=== PATIENT | male | born 1935 | race Caucasian/White ===

== ENCOUNTER 2018-11-18 15:17 | Inpatient (IN) | payer OTHER ==
[~2018-11-18] VITALS: Ht 165.1 cm; Wt 113.4 kg
--- NOTE | 2018-11-18 15:30 | NUR ---
PT BIBRA FROM HOME TO ED BED 03 C/O WORSENING COUGH, HEMOPTYSIS SINCE LAST NIGHT W/ GENERALIZED ANASARCA WORST SINCE LAST NIGHT. PT GOWNED AND PLACED ON MONITOR. HYPOTENSIVE DIRECTOR TOXICOLOGY. DENIES CHEST PAIN DIRECTOR TOXICOLOGY. AWAITING MD CARRASQUILLO.
--- NOTE | 2018-11-18 15:35 | NUR ---
DR CAREY AT BEDSIDE FOR EVAL.
--- NOTE | 2018-11-18 15:43 | NUR ---
CALLED [facility] TO INITIATE TRANSFER PROCESS
--- NOTE | 2018-11-18 15:45 | NUR ---
IV LINE STARTED BLOOD DRAWN AND SENT TO LAB.
[2018-11-18 15:50] LABS: BASOPHILS # (AUTO) 0.1 /CMM (0.0-0.2); BASOPHILS % (AUTO) 0.7 % (0.0-2.0); HEMATOCRIT 32 % (39-51); HEMOGLOBIN 10.6 g/dL (13.5-17.5); LYMPHOCYTES # (AUTO) 1.3 /CMM (0.8-4.8); LYMPHOCYTES % (AUTO) 8.4 % (20.0-44.0); MEAN CORPUSCULAR HGB CONC 33 g/dl (31.0-36.0); MEAN CORPUSCULAR VOLUME 96 fL (80-96); MONOCYTES # (AUTO) 1.1 /CMM (0.1-1.30); MONOCYTES % (AUTO) 7.5 % (2.0-12.0); NEUTROPHILS # (AUTO) 12.6 /CMM (1.8-8.9); NEUTROPHILS % (AUTO) 83.4 % (43.0-81.0); PLATELET COUNT (AUTO) 163 /CMM (150-450); RED BLOOD CELL COUNT(AUTO) 3.34 MIL/uL (4.5-6.0); WHITE BLOOD COUNT (AUTO) 15.1 K/uL (4.3-11.0)
[2018-11-18 15:59] LABS: CALCIUM, SERUM 8.3 mg/dL (8.5-10.1); CARBON DIOXIDE 29 mmol/L (21-32); CHLORIDE 98 mmol/L (98-107); CREATININE 3.4 mg/dL (0.6-1.3); GLUCOSE 138 mg/dL (74-106); POTASSIUM 4.2 mmol/L (3.5-5.1); SODIUM SERUM 136 mmol/L (136-145); UREA NITROGEN, BLOOD 44 mg/dL (7-18)
[2018-11-18 16:11] LABS: ALANINE AMINOTRANSFERASE 15 U/L (12-78); ALBUMIN 2.7 g/dL (3.4-5.0); ALKALINE PHOSPHATASE 74 U/L (46-116); ASPARTATE AMINOTRANSFERASE 9 U/L (15-37); B-TYPE NATRIURETIC PEPTIDE 10606 PG/ML (0-125); BILIRUBIN,DIRECT 0.1 mg/dL (0.0-0.2); BILIRUBIN,TOTAL 0.6 mg/dL (0.2-1.0); TOTAL PROTEIN, SERUM 6.4 g/dL (6.4-8.2)
--- NOTE | 2018-11-18 16:12 | NUR ---
RADIOLOGY AT BEDSIDE FOR EVAL.
--- NOTE | 2018-11-18 16:29 | NUR ---
CALLED XRAY FOR AN ECHO
[2018-11-18] MEDS ORDERED: IV NS 0.9% 500 ML BAG IV ONE (16:30)
[2018-11-18] MEDS ORDERED: CEFTRIAXONE 1GM BAG (ER ONLY) 50 ML IV ONE (16:51)
[2018-11-18] MEDS ORDERED: FUROSEMIDE 40 MG/4 ML VIAL ONE (16:51)
--- NOTE | 2018-11-18 16:52 | NUR ---
BOWL TOPPER AT BEDSIDE FOR BLOOD CULTURE DRAW.
[2018-11-18] MEDS ORDERED: AZITHROMYCIN 500 MG in IV D5W 250 ML IV ONE (17:00)
[2018-11-18] MEDS ORDERED: FUROSEMIDE 40 MG/4 ML VIAL IV ONE (17:00)
[2018-11-18] MEDS ORDERED: CEFTRIAXONE 1 G in IV D5W 50 ML IV ONE (17:00)
--- NOTE | 2018-11-18 17:20 | NUR ---
PT RECEIVED FROM COURT BUSTAMANTE FOR ADELINE
--- NOTE | 2018-11-18 17:26 | NUR ---
CALLED [facility] TO INFORM THEM THAT A RESULT CAME BACK AND THAT THE ER DR IS READY TO SPEAK TO THE [facility] TO INFORM HIM OF THE RESULT
--- NOTE | 2018-11-18 18:01 | NUR ---
CALLED [facility] FOR ICU BED
--- NOTE | 2018-11-18 18:06 | NUR ---
CALLED [facility]. ENGINEERING SPECIALIST TECHNICIAN WAS PAGED
[2018-11-18] MEDS ORDERED: GLIP-16 PO (18:13)
[2018-11-18] MEDS ORDERED: LATA2.5D2 EACHEYE (18:13)
[2018-11-18] MEDS ORDERED: POTA10TA PO (18:13)
[2018-11-18] MEDS ORDERED: COLC0.6C3 PO (18:13)
[2018-11-18] MEDS ORDERED: DULO20CA18 PO (18:13)
[2018-11-18] MEDS ORDERED: TERA2CAP4 PO (18:13)
[2018-11-18] MEDS ORDERED: ATOR10TA PO (18:13)
[2018-11-18] MEDS ORDERED: TRAM50TA2 PO (18:13)
[2018-11-18] MEDS ORDERED: LISI40TA4 PO (18:13)
[2018-11-18] MEDS ORDERED: CARV25TA2 PO (18:13)
[2018-11-18] MEDS ORDERED: AMLO5TAB9 PO (18:13)
[2018-11-18 18:15] LABS: BILIRUBIN,URINE SMALL (NEGATIVE); BLOOD, URINE Negative Ery/uL (NEGATIVE); KETONES,URINE Negative (NEGATIVE); LEUKOCYTE ESTERASE ,URINE Trace (NEGATIVE); NITRITE, URINE Negative (NEGATIVE); PROTEIN,URINE 30 mg/dl (NEGATIVE); UGLUCOSE Negative (NEGATIVE)
[2018-11-18 18:18] LABS: APPEARANCE,URINE HAZY (CLEAR)
[2018-11-18 18:19] LABS: COLOR,URINE DARK YELLOW (YELLOW)
[2018-11-18 18:29] LABS: RBC,URINE 0-2 /HPF (0-2)
[2018-11-18 18:30] LABS: BACTERIA,URINE Many /HPF (None Seen); SQUAMOUS EPITHELIAL CELL,UR Moderate /HPF (None Seen)
[2018-11-18] MEDS ORDERED: ONDANSETRON HCL/PF 4 MG/2 ML VIAL IVP PRN (19:00)
[2018-11-18] MEDS ORDERED: TRAMADOL HCL 50 MG TABLET PO PRN (19:00)
[2018-11-18] MEDS ORDERED: NOREPINEPHRINE 8 MG in IV D5W 500 ML IV PRN (19:00)
[2018-11-18] MEDS ORDERED: DEXTROSE 50%-WATER 50 ML DISP.SYRIN IV PRN (19:00)
--- NOTE | 2018-11-18 19:52 | NUR ---
ICU BED 256 GIVEN
--- NOTE | 2018-11-18 20:04 | NUR ---
REPORT GIVEN TO KRUPA YUN.
--- NOTE | 2018-11-18 20:25 | NUR ---
US AT BEDSIDE.
--- NOTE | 2018-11-18 20:45 | NUR ---
RN NOTE RECEIVED PATIENT FROM ER VIA GURELISABETH, ALERT/ORIENTED X 4, AWAKE, PAIN NOTED 11/19, THROAT PAIN, PER PATIENT HE HAS PAIN IN THE THROAT AFTER EPISODE OF VOMITING AT HOME, PAIN MEDICATION ADMINISTERED, DX ARF, ON NASAL CANULA 2 L/MIN VIA NASAL CANULA, PACEMAKER ON THE LEFT SIDE OF THE CHEST, GENERALIZED EDEMA, LEFT HAND 18G, NO S/S OF INFECTION/INFILTRATION, DAUGHTER IS BY BEDSIDE, DR BRITO IS BY BEDSIDE, ALL SAFETY MEASURES TAKEN
[2018-11-18] MEDS: NORMAL SALINE FLUSH 10 ML SYR IV SCH (21:29)
[2018-11-18] MEDS: ATORVASTATIN 10 MG TABLET PO SCH (21:30)
[2018-11-18] MEDS: BLOOD SUGAR DIAGNOSTIC 1 EACH STRIP IN SCH (21:34)
[2018-11-18] MEDS: ALBUTEROL FS 2.5 MG/3 ML VIAL.NEB NEB SCH (21:41)
[2018-11-18 22:00] VITALS: BP 148/64
[2018-11-18] MEDS ORDERED: LATANOPROST EYE DROP 0.005% 2.5 ML BOTTLE EACHEYE SCH (22:00)
--- NOTE | 2018-11-18 22:00 | NUR ---
RN NOTE PENA CATH. WAS INSERTED BY CHARGE NURSE, NO S/S OF BLEEDING NOTED, URINE CLEAR
--- NOTE | 2018-11-18 22:00 | NUR ---
RN NOTE BLADDER SCAN 24ML NOTED, PER DOCTOR DARYL NEW ORDER OF INSERTION OF PENA CATHETER GIVEN AND CARRIED OUT
[2018-11-18 22:30] VITALS: BP 121/62
[2018-11-18 22:43] LABS: THYROID STIMULATING HORMONE 4.204 uIU/mL (0.358-3.74)
[2018-11-18 23:00] VITALS: BP 129/69
[2018-11-18 23:30] VITALS: BP 131/67
[2018-11-18] MEDS ORDERED: LATANOPROST EYE DROP 0.005% 2.5 ML BOTTLE ONE (23:42)
--- NOTE | 2018-11-18 23:46 | NUR ---
RN NOTE PATIENT COMPLAINED OF PAIN AFTER INSERTION OF PENA CATH, CALLED DR HYMAN, NEW ORDER IS GIVEN AND CARRIED, ALSO NOTIFIED DR HYMAN OF TROPONIN 0.108, NO ORDERS AT THIS TIME, WILL CONTINUE TO MONITOR PATIENT
[2018-11-19] VITALS (33 sets, daily range): BP systolic 87–145; BP diastolic 39–82
[2018-11-19] MEDS ORDERED: MORPHINE SULFATE INJ 2 MG/ML DISP.SYRIN IV ONE
[2018-11-19] MEDS: NORMAL SALINE FLUSH 10 ML SYR IV SCH ×2 (05:00→13:00)
--- NOTE | 2018-11-19 07:05 | NUR ---
RN NOTE PATIENT IS ALERT/ORIENTED, NO BREATHING PROBLEM NOTED AT THIS TIME, NO PAIN OR DISCOMFORT AT THIS TIME, ALL SAFETY MEASURES TAKEN
--- NOTE | 2018-11-19 07:25 | NUR ---
COUNTER FORMER OPENING NOTE NOTE RECEIVED REPORT FROM PM NURSE.PATIENT AXOX4 NICARAGUAN SPEAKING.UNDERSTAND MINIMAL NIGERIAN.NO SOB NO DISTRESS NOTED.ON O2 4L VIA NASAL CANULA.NO CHEST PAIN NOTED.IV ON L HAND INTACT AND PATENT.CONTROLLED AFIB WITH HR 110 ON MONITOR.SAFETY AND ASPIRATION PRECAUTIONS OBSERVED.WILL CONTINUE TO MONITOR.
[2018-11-19] MEDS: BLOOD SUGAR DIAGNOSTIC 1 EACH STRIP IN SCH ×3 (07:27→17:18)
[2018-11-19] MEDS: ALBUTEROL FS 2.5 MG/3 ML VIAL.NEB NEB SCH ×3 (07:29→15:20)
[2018-11-19] MEDS: INSULIN REGULAR, HUMAN 100 UNIT/ML 3 ML VIAL SQ PRN ×2 (07:49→12:58)
[2018-11-19] MEDS ORDERED: DULOXETINE HCL 20 MG CAPSULE.DR PO SCH (09:00)
[2018-11-19] MEDS ORDERED: PANTOPRAZOLE 40 MG VIAL IV SCH (09:00)
[2018-11-19] MEDS: ACETAMINOPHEN 325 MG TABLET PO PRN ×2 (09:50→17:20)
[2018-11-19] MEDS ORDERED: PANTOPRAZOLE 40 MG TABLET.DR PO SCH (10:00)
--- NOTE | 2018-11-19 10:30 | NUR ---
INTERIOR PANELER NOTE PATIENT C/O PAIN IN THE CATHETER INSERTION SITE WANT TO REMOVE CATHETER, MADE AWARE.OK TO REMOVE PENA CATH.PENA REMOVED.WILL CONTINUE TO MONITOR.
[2018-11-19 11:04] LABS: BASOPHILS # (AUTO) 0.1 /CMM (0.0-0.2); BASOPHILS % (AUTO) 0.4 % (0.0-2.0); EOSINOPHILS % (AUTO) 0.1 % (0.0-6.0); HEMATOCRIT 33 % (39-51); LYMPHOCYTES # (AUTO) 0.8 /CMM (0.8-4.8); LYMPHOCYTES % (AUTO) 5.6 % (20.0-44.0); MEAN CORPUSCULAR HGB CONC 33 g/dl (31.0-36.0); MEAN CORPUSCULAR VOLUME 95 fL (80-96); MONOCYTES % (AUTO) 7.1 % (2.0-12.0); NEUTROPHILS # (AUTO) 12.5 /CMM (1.8-8.9); NEUTROPHILS % (AUTO) 86.8 % (43.0-81.0); PLATELET COUNT (AUTO) 174 /CMM (150-450); WHITE BLOOD COUNT (AUTO) 14.5 K/uL (4.3-11.0)
[2018-11-19 11:17] LABS: APPEARANCE,URINE CLOUDY (CLEAR); BILIRUBIN,URINE 1+ (NEGATIVE); BLOOD, URINE 3+ Ery/uL (NEGATIVE); COLOR,URINE BROWN (YELLOW); KETONES,URINE NEGATIVE (NEGATIVE); LEUKOCYTE ESTERASE ,URINE NEGATIVE (NEGATIVE); NITRITE, URINE NEGATIVE (NEGATIVE); PROTEIN,URINE 2+ mg/dl (NEGATIVE); UGLUCOSE NEGATIVE (NEGATIVE); UROBILINOGEN,URINE 0.2 EU/dL (0.2)
[2018-11-19 11:20] LABS: URINE TOTAL PROTEIN 188.5 mg/dL (0-11.9)
[2018-11-19 11:23] LABS: RBC,URINE TOO NUMEROUS TO COUN /HPF (0-2)
[2018-11-19 11:24] LABS: BACTERIA,URINE Few /HPF (None Seen); SQUAMOUS EPITHELIAL CELL,UR Few /HPF (None Seen); URINE AMORPHOUS URATE Moderate /HPF (None Seen)
[2018-11-19 11:27] LABS: ALANINE AMINOTRANSFERASE 17 U/L (12-78); ALBUMIN 2.6 g/dL (3.4-5.0); ALKALINE PHOSPHATASE 77 U/L (46-116); ASPARTATE AMINOTRANSFERASE 10 U/L (15-37); BILIRUBIN,TOTAL 0.6 mg/dL (0.2-1.0); CALCIUM, SERUM 8.5 mg/dL (8.5-10.1); CARBON DIOXIDE 28 mmol/L (21-32); CHLORIDE 96 mmol/L (98-107); CREATININE 3.1 mg/dL (0.6-1.3); GLUCOSE 174 mg/dL (74-106); MAGNESIUM 2.2 mg/dL (1.8-2.4); PHOSPHORUS 5.2 mg/dL (2.5-4.9); SODIUM SERUM 134 mmol/L (136-145); TOTAL PROTEIN, SERUM 6.5 g/dL (6.4-8.2); UREA NITROGEN, BLOOD 51 mg/dL (7-18)
--- NOTE | 2018-11-19 11:30 | NUR ---
GLOBAL LOGISTICS ANALYST NOTE SEEN BY UPDATED PATIENT CONDITION WITH LABS.GOT NEW ORDER FOR DISCHARGE TO [place].WILL CONTINUE TO MONITOR.
[2018-11-19 13:18] LABS: EOSINOPHIL,URINE Rare
[2018-11-19] MEDS ORDERED: SOD FERRIC GLUC 125 MG in IV NS 0.9% 100 ML IV SCH (14:00)
[2018-11-19] MEDS: ATORVASTATIN 10 MG TABLET PO SCH (17:21)
--- NOTE | 2018-11-19 18:30 | NUR ---
SETTLEMENT PROCESSOR NOTE DISCHARGE INSTRUCTIONS GIVEN TO PATIENT AND FAMILY.EXIT CARE GIVEN.PATIENT VERBALIZED UNDERSTANDING.NO ATB TO CONTINUE PER .PATIENT TRANSFERRING.NO BELONGINGS.CASE ,GOT CALL FROM TOE PUNCHER GOT INFORMATION REGARDING TRANSFER.
--- NOTE | 2018-11-19 18:44 | NUR ---
PROFESSOR OF THEATERBIRD RAISER NOTE PATIENT TRANSFERRED TO [facility] BY [facility] WITH FAMILY.PATIENT IS IN STABLE CONDITION.NO SOB NO DISTRESS NOTED.ON O2 3L VIA NASAL CANULA.NO CHEST PAIN NOTED.BLADDER SCAN DONE.MAX AMOUNT OF URINE 100ML.IV ON L HAND INTACT AND PATENT.CONTROLLED AFIB WITH HR 103 ON MONITOR.REPORT GIVEN TO JEANNETTE YUN AT [facility].ROOM [facility]0-A PHONE #[phone].
[2018-11-19] MEDS ORDERED: CEFTRIAXONE 1 G in IV D5W 50 ML IV SCH (20:00)
[2018-11-19] MEDS ORDERED: AZITHROMYCIN 250 MG TABLET PO SCH (20:00)
[2018-11-20] MEDS ORDERED: LEVOTHYROXINE SODIUM 100 MCG TABLET PO SCH (07:30)
== END 2018-11-19 18:54 | disposition short-term general hospital (02) | DRG 280 ==
LOC: ER 15:22 → ICU 20:00
PROVIDERS: ADMIT Internal Medicine; ATTEND Internal Medicine
DX: I13.0 Hypertensive heart and chronic kidney disease with heart failure and stage 1 through stage 4 chronic kidney disease, or unspecified chronic kidney disease (principal); N17.0 Acute kidney failure with tubular necrosis; I21.A1 Myocardial infarction type 2; I50.31 Acute diastolic (congestive) heart failure; I42.9 Cardiomyopathy, unspecified; D72.829 Elevated white blood cell count, unspecified; E78.5 Hyperlipidemia, unspecified; E66.01 Morbid (severe) obesity due to excess calories; I25.10 Atherosclerotic heart disease of native coronary artery without angina pectoris; Z95.0 Presence of cardiac pacemaker; I70.0 Atherosclerosis of aorta; G47.33 Obstructive sleep apnea (adult) (pediatric); D50.9 Iron deficiency anemia, unspecified; I95.9 Hypotension, unspecified; N40.0 Benign prostatic hyperplasia without lower urinary tract symptoms; I48.91 Unspecified atrial fibrillation; I70.1 Atherosclerosis of renal artery; K21.9 Gastro-esophageal reflux disease without esophagitis; N18.9 Chronic kidney disease, unspecified; E11.22 Type 2 diabetes mellitus with diabetic chronic kidney disease; Z79.84 Long term (current) use of oral hypoglycemic drugs
CPT/HCPCS: 36415; 71045-TC; 80048-TC; 80053-TC; 80076-TC; 81000-TC; 82570-TC; 82962-TC; 83540-TC; 83605-TC; 83735-TC; 83880; 84100-TC; 84155-TC; 84300-TC; 84443-TC; 84484-TC; 85025-TC; 85730-TC; 87040-TC; 87081-TC; 87086-TC; 93307-TC; A4216; G0378; J0456; J0696; J1815; J1940; J2270; J2916; J7030; J7040; J7060

== ENCOUNTER 2019-09-11 19:00 | Inpatient (IN) | payer OTHER ==
[~2019-09-11] VITALS: Ht 152.4 cm; Wt 99.8 kg
[~2019-09-11 19:00] MED LIST: ATOR10TA PO; CARV25TA2 PO; DULO20CA19 PO; LATA2.5D2 EACHEYE; TRAM50TA2 PO
--- NOTE | 2019-09-11 19:30 | NUR ---
bibra39, from home, c/o weakness and dizzy x 1 hr, hypotension on scene. Pt alert and responsive. breathing evenly. pt was placed on a monitor,
--- NOTE | 2019-09-11 20:00 | NUR ---
BLADDER SCAN DONE: 60ML. MADE AWARE. PER MD TO HOLD PENA CATH INSERTION
--- NOTE | 2019-09-11 20:00 | NUR ---
US TECH AT THE BED SIDE
--- NOTE | 2019-09-11 20:32 | NUR ---
EVGENY GRACIA IN LAW
[2019-09-11 20:47] LABS: BASOPHILS % (AUTO) 0.2 % (0.0-2.0); HEMATOCRIT 33 % (39-51); HEMOGLOBIN 10.7 g/dL (13.5-17.5); LYMPHOCYTES # (AUTO) 0.4 /CMM (0.8-4.8); LYMPHOCYTES % (AUTO) 2.2 % (20.0-44.0); MEAN CORPUSCULAR HGB CONC 33 g/dl (31.0-36.0); MEAN CORPUSCULAR VOLUME 93 fL (80-96); MONOCYTES # (AUTO) 0.5 /CMM (0.1-1.30); MONOCYTES % (AUTO) 2.4 % (2.0-12.0); NEUTROPHILS # (AUTO) 17.7 /CMM (1.8-8.9); NEUTROPHILS % (AUTO) 95.2 % (43.0-81.0); PLATELET COUNT (AUTO) 263 /CMM (150-450); RED BLOOD CELL COUNT(AUTO) 3.55 MIL/uL (4.5-6.0); WHITE BLOOD COUNT (AUTO) 18.6 K/uL (4.3-11.0)
[2019-09-11 21:19] LABS: CALCIUM, SERUM 7.8 mg/dL (8.5-10.1); CARBON DIOXIDE 26 mmol/L (21-32); CHLORIDE 93 mmol/L (98-107); CREATININE 2.4 mg/dL (0.6-1.3); GLUCOSE 207 mg/dL (74-106); POTASSIUM 3.3 mmol/L (3.5-5.1); SODIUM SERUM 130 mmol/L (136-145); UREA NITROGEN, BLOOD 34 mg/dL (7-18)
[2019-09-11 21:24] LABS: ALANINE AMINOTRANSFERASE 16 U/L (12-78); ALBUMIN 2.1 g/dL (3.4-5.0); ALKALINE PHOSPHATASE 152 U/L (46-116); ASPARTATE AMINOTRANSFERASE 15 U/L (15-37); BILIRUBIN,DIRECT 0.2 mg/dL (0.0-0.2); BILIRUBIN,TOTAL 0.6 mg/dL (0.2-1.0); TOTAL PROTEIN, SERUM 5.9 g/dL (6.4-8.2)
[2019-09-11] MEDS ORDERED: IV NS 0.9% 500 ML BAG IV ONE (22:30)
[2019-09-11] MEDS ORDERED: MEROPENEM 1,000 MG in IV NS 0.9% 100 ML IV ONE (22:30)
[2019-09-11] MEDS: VANCOMYCIN 1 GM in IV D5W 250 ML IV ONE ×2 (22:35→23:08)
--- NOTE | 2019-09-11 22:35 | NUR ---
end time for [facility]: [id number]
[2019-09-11] MEDS ORDERED: MEROPENEM 1 G VIAL IV ONE (22:39)
[2019-09-11] MEDS ORDERED: VANCOMYCIN 1 GM VIAL ONE (22:40)
--- NOTE | 2019-09-11 22:53 | NUR ---
CALLED [facility], AWAITING CALL FROM [facility]
--- NOTE | 2019-09-11 23:10 | NUR ---
[place] DANIELLA [phone]
--- NOTE | 2019-09-11 23:31 | NUR ---
[facility] BED 106
[2019-09-11 23:38] LABS: APPEARANCE,URINE Slightly Cloudy (CLEAR); BILIRUBIN,URINE Negative (NEGATIVE); BLOOD, URINE Moderate Ery/uL (NEGATIVE); COLOR,URINE Yellow (YELLOW); KETONES,URINE Negative (NEGATIVE); LEUKOCYTE ESTERASE ,URINE Small (NEGATIVE); NITRITE, URINE Negative (NEGATIVE); PROTEIN,URINE Trace mg/dl (NEGATIVE); UGLUCOSE 500 MG/DL mg/dL (NEGATIVE); UROBILINOGEN,URINE 0.2 EU/dL (0.2)
--- NOTE | 2019-09-11 23:58 | NUR ---
RECEIVED REPORT FROM ER NURSE MALLORY.
--- NOTE | 2019-09-11 23:58 | NUR ---
report givwn to donald
[2019-09-12] VITALS (7 sets, daily range): BP systolic 105–156; BP diastolic 60–84
[2019-09-12 00:07] LABS: BACTERIA,URINE Many /HPF (None Seen); SQUAMOUS EPITHELIAL CELL,UR Rare /HPF (None Seen); WBC,URINE 81-100 /HPF (0-3)
--- NOTE | 2019-09-12 00:18 | NUR ---
[facility]ON[facility] RN NOTE PATIENT IS 83 YEAR OLD MALE ARRIVED TO [facility] VIA [facility] ACLS PROTOCOL. PATIENT IS AOX3. ON NC 2L/MIN TOLERATING WELL SATURATION 97%. ON TELE MONITORING SHOWING CONTROLLED A-FIB HR 80-90s. ON PENA CATHETER, PATENT AND DRAINING CLEAR YELLOW URINE. PATIENT HAS RIGHT AC G18 AND RIGHT HAND G18; ALL IV SITES C/D/I. FLUSHING WELL. PHOTO OF SKIN ISSUE TAKEN AND PLACED IN CHART. PLACED ON DROPLET PRECAUTION FOR R/O COVID. SPECIMEN COLLECTED IN ED, AWAITING FOR PENDING RESULT. SAFETY PRECAUTIONS IMPLEMENTED. BED LOCKED, LOW POSITION, ALARM ON. SIDE RAILS X 2 UP. HOB ELEVATED. PATIENT WISHES TO BE FULL CODE. CALL LIGHT PLACED WITHIN REACH. WILL CONT. TO MONITOR.
--- NOTE | 2019-09-12 00:26 | NUR ---
pt was transferred to 109 under acls
[2019-09-12] MEDS ORDERED: MAGNESIUM HYDROXIDE 30 ML UDC PO PRN (00:30)
[2019-09-12] MEDS ORDERED: ACETAMINOPHEN 325 MG TABLET PO PRN (00:30)
[2019-09-12] MEDS ORDERED: ZOLPIDEM TARTRATE 5 MG TABLET PO PRN (00:30)
[2019-09-12] MEDS ORDERED: MAG HYDROX/AL HYDROX/SIMETH 30 ML UDC PO PRN (00:30)
[2019-09-12] MEDS ORDERED: Z GUARD REMEDY 2 OZ OINT TP PRN (00:30)
[2019-09-12] MEDS ORDERED: ONDANSETRON HCL/PF 4 MG/2 ML VIAL IVP PRN (00:30)
[2019-09-12] MEDS: IV NS 0.9% 1,000 ML IV PRN (01:39)
[2019-09-12] MEDS: HYDROCODONE/APAP 5/325MG 1 EACH TABLET PO PRN ×5 (01:41→23:08)
--- NOTE | 2019-09-12 04:00 | NUR ---
YONAS RN NOTE BED BATH RENDERED PATIENT TOLERATED WELL.
[2019-09-12] MEDS ORDERED: PIPERACILLIN /TAZOBACTAM 2.25 G VIAL IV ONE (05:54)
[2019-09-12] MEDS ORDERED: PIPERACILLIN /TAZOBACTAM 2.25 G in IV D5W 50 ML IV ONE (06:00)
[2019-09-12 06:54] LABS: BASOPHILS # (AUTO) 0.1 /CMM (0.0-0.2); BASOPHILS % (AUTO) 0.5 % (0.0-2.0); EOSINOPHILS % (AUTO) 0.1 % (0.0-6.0); HEMATOCRIT 31 % (39-51); HEMOGLOBIN 10.1 g/dL (13.5-17.5); LYMPHOCYTES % (AUTO) 4.2 % (20.0-44.0); MEAN CORPUSCULAR HGB CONC 33 g/dl (31.0-36.0); MEAN CORPUSCULAR VOLUME 93 fL (80-96); MONOCYTES % (AUTO) 4.3 % (2.0-12.0); NEUTROPHILS # (AUTO) 21.7 /CMM (1.8-8.9); NEUTROPHILS % (AUTO) 90.9 % (43.0-81.0); PLATELET COUNT (AUTO) 237 /CMM (150-450); RED BLOOD CELL COUNT(AUTO) 3.36 MIL/uL (4.5-6.0); WHITE BLOOD COUNT (AUTO) 23.9 K/uL (4.3-11.0)
--- NOTE | 2019-09-12 07:01 | NUR ---
[facility]ON[facility] RN NOTES PATIENT RESTED WELL THROUGH OUT THE SHIFT. NO S/S OF DISTRESS NOTED. VITAL SIGNS REMAINED WNL. DUE MEDICATIONS/ PRN WERE GIVEN WAS EFFECTIVE TOLERATED WELL. F/C INTACT YELLOW URINE DARNING WITH GRAVITY. PATIENT IS COMPLIANT WITH TREATMENT. ALL SAFETY MEASURES IN PLACE. ALL NEEDS ARE ATTENDED. WILL ENDORSE PATIENT TO DAY SHIFT NURSE FOR ADELINE.
--- NOTE | 2019-09-12 07:10 | NUR ---
[facility] RN OPENING NOTES RECEIVED REPORT FROM [facility] SHIFT NURSE. PT AWAKE IN BED, ALERT AND ORIENTED X 3, SAO TOMEAN SPEAKING, ON 02 VIA NC 2L/MIN, SATURATING WELL, NO SIGNS OF RESPIRATORY DISTRESS NOTED. AFIB ON TELE MONITOR, PENA CATH INTACT, PATENT, DRAINING CLEAR YELLOW URINE. I SITE ON RIGHT AC G18 INTACT, PATENT. IV SITE ON RIGHT HAND G18 INTACT PATENT. BED IN LOW POSITION, LOCKED, CALL LIGHT WITHIN REACH. COVID DROPLET PRECAUTIONS MAINTAINED FOR R/E COVID. WILL CONTINUE TO MONITOR.
[2019-09-12 07:45] LABS: CALCIUM, SERUM 7.6 mg/dL (8.5-10.1); CARBON DIOXIDE 25 mmol/L (21-32); CHLORIDE 94 mmol/L (98-107); CREATININE 2.3 mg/dL (0.6-1.3); GLUCOSE 294 mg/dL (74-106); SODIUM SERUM 130 mmol/L (136-145); UREA NITROGEN, BLOOD 34 mg/dL (7-18)
[2019-09-12 07:52] LABS: ALANINE AMINOTRANSFERASE 16 U/L (12-78); ALBUMIN 1.9 g/dL (3.4-5.0); ALKALINE PHOSPHATASE 108 U/L (46-116); ASPARTATE AMINOTRANSFERASE 11 U/L (15-37); BILIRUBIN,TOTAL 0.5 mg/dL (0.2-1.0); MAGNESIUM 2.1 mg/dL (1.8-2.4); PHOSPHORUS 4.1 mg/dL (2.5-4.9); TOTAL PROTEIN, SERUM 5.6 g/dL (6.4-8.2)
[2019-09-12] MEDS ORDERED: NITR0.4T48 SL (08:07)
[2019-09-12] MEDS ORDERED: POTA10TA11 PO (08:07)
[2019-09-12] MEDS ORDERED: ACET-868 PO (08:07)
[2019-09-12] MEDS ORDERED: COLC0.6C3 PO (08:07)
[2019-09-12] MEDS ORDERED: EMPA25TA PO (08:07)
[2019-09-12] MEDS ORDERED: CYAN100096 PO (08:07)
[2019-09-12] MEDS ORDERED: FERR325T23 PO (08:07)
[2019-09-12] MEDS ORDERED: GLIP5TAB13 PO (08:07)
[2019-09-12] MEDS ORDERED: DABI110C PO (08:07)
[2019-09-12] MEDS ORDERED: MAGN400T26 PO (08:07)
[2019-09-12] MEDS ORDERED: METF-442 PO (08:07)
[2019-09-12] MEDS ORDERED: TORS20TA3 PO (08:07)
[2019-09-12] MEDS ORDERED: MINE105O TP (08:07)
[2019-09-12] MEDS ORDERED: TERA2CAP4 PO (08:07)
[2019-09-12] MEDS ORDERED: MIRT15TA7 PO (08:07)
[2019-09-12] MEDS ORDERED: TERB30CR8 TP (08:07)
[2019-09-12] MEDS: DULOXETINE HCL 20 MG CAPSULE.DR PO SCH (08:13)
[2019-09-12] MEDS: FUROSEMIDE 40 MG/4 ML VIAL IV SCH ×2 (08:15→11:26)
[2019-09-12] MEDS: PIPERACILLIN /TAZOBACTAM 2.25 G in IV D5W 50 ML IV SCH ×3 (11:26→23:35)
[2019-09-12] MEDS: ATORVASTATIN 10 MG TABLET PO SCH (17:08)
--- NOTE | 2019-09-12 17:55 | NUR ---
[facility]ON[facility] RN CLOSING NOTES PT AWAKE IN BED, ALERT AND ORIENTED X 3, PERUVIAN SPEAKING, ON 02 VIA NC 2L/MIN, SATURATING WELL, NO SIGNS OF RESPIRATORY DISTRESS NOTED. AFIB ON TELE MONITOR, PENA CATH INTACT, PATENT, DRAINING CLEAR YELLOW URINE. I SITE ON RIGHT AC G18 INTACT, PATENT. IV SITE ON RIGHT HAND G18 INTACT PATENT. BED IN LOW POSITION, LOCKED, CALL LIGHT WITHIN REACH. COVID DROPLET PRECAUTIONS MAINTAINED FOR R/O COVID. PROVIDED SAFETY AND COMFORT TO PT THROUGHOUT SHIFT, ALL DUE MEDS GIVEN. WILL ENDORSE TO NOC SHIFT NURSE.
[2019-09-12] MEDS ORDERED: LATANOPROST EYE DROP 0.005% 2.5 ML BOTTLE EACHEYE SCH (22:00)
[2019-09-13] VITALS (7 sets, daily range): BP systolic 114–149; BP diastolic 49–87
[2019-09-13] MEDS: IV NS 0.9% 1,000 ML IV PRN (02:32)
--- NOTE | 2019-09-13 02:55 | NUR ---
RN NOTE RECEIVED ALERT FOR CRITICAL LAB VALUE. PRELIMARY BLOOD CULTURES SHOW GRAM NEGATIVE RODS. PT IS ALREADY ON ZOSYN 2.25G IV Q6H. DR. HAWK ( GLOBAL PROJECT MANAGER) MADE AWARE WITH NO NEW ORDERS.
[2019-09-13] MEDS: PIPERACILLIN /TAZOBACTAM 2.25 G in IV D5W 50 ML IV SCH ×3 (05:01→17:46)
[2019-09-13] MEDS: HYDROCODONE/APAP 5/325MG 1 EACH TABLET PO PRN (05:30)
[2019-09-13 06:28] LABS: BASOPHILS # (AUTO) 0.1 /CMM (0.0-0.2); BASOPHILS % (AUTO) 0.3 % (0.0-2.0); EOSINOPHILS % (AUTO) 0.5 % (0.0-6.0); HEMATOCRIT 33 % (39-51); LYMPHOCYTES % (AUTO) 5.6 % (20.0-44.0); MEAN CORPUSCULAR HGB CONC 33 g/dl (31.0-36.0); MEAN CORPUSCULAR VOLUME 93 fL (80-96); MONOCYTES # (AUTO) 1.1 /CMM (0.1-1.30); NEUTROPHILS # (AUTO) 16.5 /CMM (1.8-8.9); NEUTROPHILS % (AUTO) 87.6 % (43.0-81.0); PLATELET COUNT (AUTO) 236 /CMM (150-450); RED BLOOD CELL COUNT(AUTO) 3.58 MIL/uL (4.5-6.0); WHITE BLOOD COUNT (AUTO) 18.8 K/uL (4.3-11.0)
--- NOTE | 2019-09-13 07:10 | NUR ---
RN NOTE PT SLEEPING IN BED BUT EASILY AROUSABLE. RESPIRATIONS EVEN AND UNLABORED. NO INDICATIONS OF DISTRESS OR DISCOMFORT. ENDORSED TO MORNING RN FOR CONTINUATION OF CARE.
[2019-09-13 07:19] LABS: ALANINE AMINOTRANSFERASE 16 U/L (12-78); ALBUMIN 2.1 g/dL (3.4-5.0); ALKALINE PHOSPHATASE 114 U/L (46-116); ASPARTATE AMINOTRANSFERASE 11 U/L (15-37); BILIRUBIN,DIRECT 0.1 mg/dL (0.0-0.2); BILIRUBIN,TOTAL 0.4 mg/dL (0.2-1.0); CALCIUM, SERUM 8.5 mg/dL (8.5-10.1); CARBON DIOXIDE 30 mmol/L (21-32); CHLORIDE 96 mmol/L (98-107); GLUCOSE 204 mg/dL (74-106); MAGNESIUM 2.5 mg/dL (1.8-2.4); PHOSPHORUS 4.9 mg/dL (2.5-4.9); POTASSIUM 3.5 mmol/L (3.5-5.1); SODIUM SERUM 136 mmol/L (136-145); TOTAL PROTEIN, SERUM 6.3 g/dL (6.4-8.2); UREA NITROGEN, BLOOD 31 mg/dL (7-18)
[2019-09-13 07:30] LABS: IRON, SERUM 27 ug/dl (50-175); TOTAL IRON BINDING CAPACITY 209 ug/dl (250-450)
--- NOTE | 2019-09-13 08:00 | NUR ---
rn notes received patient asleep but easily awaken by verbal stimuli, able to respond but Fijian speaking only. on oxygen support via nasal cannula with oxygen at 2lpm saturating well. with complaints of discomfort on the penile area and with request to pull out flores catheter, flores with clear pink tinged urine. patient reminded on the significance of flores. patient encourage to call for help and assistance. safety measures put in place. bed in low and locked positioned. call light within reach. will continue to monitor patient accordingly
--- NOTE | 2019-09-13 08:33 | NUR ---
WOUND CARE CONSULT: REVIEWED ADMISSION DOCUMENTATION INCLUDING PHOTO AND DISCUSSED WITH NURSING STAFF. PER NURSE, PT HAS DRY ABRASION TO RT LOWER LEG, PRESENT ON ADMISSION. NO TENDERNESS REPORTED BY PT AND NO DRAINAGE OR ERYTHEMA. RECOMMENDATIONS MADE FOR SKIN PROTECTION. DISCUSSED WITH NURSING STAFF. WILL SEE PRN. CURRENT ANGELIKA SCORE IS 18.
[2019-09-13 08:50] LABS: CHOLESTEROL 106 mg/dL (<200); HDL CHOLESTEROL 31 mg/dL (40-60); LDL 38 mg/dL (0-99); TRIGLYCERIDES 222 mg/dL (30-150)
[2019-09-13] MEDS: DULOXETINE HCL 20 MG CAPSULE.DR PO SCH (08:52)
[2019-09-13] MEDS: FUROSEMIDE 100 MG/10 ML VIAL IV SCH ×3 (08:52→17:04)
[2019-09-13] MEDS: POTASSIUM CHLORIDE 20 MEQ TAB.PRT.SR PO SCH ×3 (08:53→15:19)
[2019-09-13] MEDS ORDERED: FUROSEMIDE 100 MG/10 ML VIAL IV ONE (09:00)
--- NOTE | 2019-09-13 09:00 | NUR ---
rn notes dr. pierre with order of lasix 100mg iv one time dose. clarified with him that dr. sierra with order for 80 mg iv x3 dose and if he would want his order administer on top of the existing order. per the latter he discontinued his order. medication not administered then
[2019-09-13] MEDS ORDERED: SOD FERRIC GLUC 125 MG in IV NS 0.9% 100 ML IV SCH (14:00)
[2019-09-13] MEDS: ATORVASTATIN 10 MG TABLET PO SCH (17:46)
--- NOTE | 2019-09-13 18:45 | NUR ---
rn notes >spoke to kyung (wrapper caser) about patient getting transferred to [facility] due to insurance request. detail on transfer obtained from the latter. >called [facility] at [phone], spoke to lindseyrn report given for continuity of care.
--- NOTE | 2019-09-13 19:00 | NUR ---
RN OPENING NOTES RECEIVED PATIENT SLEEPING IN BED, BUT EASY TO AROUSE VIA TOUCH, A/OX3, ABLE TO MAKE NEEDS KNOWN VERBALLY, AUSTRALIAN SPEAKING BUT CAN UNDERSTAND CHINESE. ON TELE MONITOR CONTROLLED AFIB WITH HR 90'S. ON ROOMAIR, TOLERATING WELL, NO SOB OR RESPIRATORY DISTRESS NOTED. IV SITES ALL FLUSHING AND INTACT, SALINE LOCKED. PATIENT CONTINENT, URINAL AT BEDSIDE. SAFETY MEASURES IN PLACE; CALL LIGHT WITHIN REACH, SIDE RAILS UP X2, HOB ELEVATED, BED LOCKED AND IN LOWEST POSITION, BED ALARM ON. PER REPORT, PATIENT TO TRANSFER TO [facility]. WILL CONT TO MONITOR CLOSELY.
--- NOTE | 2019-09-13 19:30 | NUR ---
rn notes endorsed for continuity of care. not on any form of distress.breathing unlabored. no complaints of pain. patient aware of transfer to [facility]. safety measures inn place. call light within reach Addendum: 09/13/19 at 1957 by YVETTE FELIX RN contacted demi () to inform about the transfer but was unreachable, voicemail is not set up thus i was not able to leave a message. will endorse to incoming shift nurse
--- NOTE | 2019-09-13 20:10 | NUR ---
RN CLOSING/TRANSFER NOTES PATIENT REPORT GIVEN BY AM RN YVETTE TO COURT [facility]. PATIENT STABLE, ALERT, A/OX3. ALL DISCHARGE/TRANSFER DOCUMENTATIONS DONE. PATIENT REMOVED FROM TELE MONITOR. ON ROOM AIR, TOLERATING WELL, NO SOB OR RESPIRATORY DISTRESS NOTED. ALL IV SITES FLUSHING AND INTACT, SALINE LOCKED. BED BATH GIVEN. KEPT PT CLEAN, DRY, AND COMFORTABLE. WOUND PICTURE WITHIN TAKEN LESS THAN 24 HRS AGO, KEPT IN CHART. ZHANG () UNABLE TO REACH, NO VOICEMAIL SET UP. ALL MD ORDERS ATTENDED. ALL NEEDS ANTICIPATED AND MET. GAVE AMBULANCE PERSONNEL PATIENT BELONGINGS EXCEPT PATIENT'S UPPER AND LOWER DENTURES (PT WEARING DENTURES) REPORT GIVEN TO AMBULANCE PERSONNEL FOR ADELINE. PATIENT LEFT THE UNIT WITH AMBULANCE PERSONNEL.
[2019-09-24] MEDS ORDERED: VANCOMYCIN 1 GM in IV D5W 250 ML IV STA (17:24)
[2019-09-24] MEDS ORDERED: MEROPENEM 1 G in IV NS 0.9% 100 ML IV STA (17:24)
[2019-09-24] MEDS ORDERED: ACETAMINOPHEN 325 MG TABLET PO STA (17:24)
== END 2019-09-13 20:10 | disposition short-term general hospital (02) | DRG 871 ==
LOC: ER 19:04 → TELE-TD 23:41
PROVIDERS: ADMIT Student in an Organized Health Care Education/Training Program; ATTEND Student in an Organized Health Care Education/Training Program
PROC: 05H533Z Insertion of Infusion Device into Right Subclavian Vein, Percutaneous Approach (ICD-10-PCS; principal; 2019-09-12)
DX: A41.9 Sepsis, unspecified organism (principal); E43 Unspecified severe protein-calorie malnutrition; J18.9 Pneumonia, unspecified organism; N17.0 Acute kidney failure with tubular necrosis; I50.33 Acute on chronic diastolic (congestive) heart failure; D68.9 Coagulation defect, unspecified; E87.2 Acidosis; N39.0 Urinary tract infection, site not specified; I13.0 Hypertensive heart and chronic kidney disease with heart failure and stage 1 through stage 4 chronic kidney disease, or unspecified chronic kidney disease; Z68.41 Body mass index [BMI] 40.0-44.9, adult; I95.9 Hypotension, unspecified; R42 Dizziness and giddiness; G47.33 Obstructive sleep apnea (adult) (pediatric); D50.9 Iron deficiency anemia, unspecified; N18.9 Chronic kidney disease, unspecified; I25.2 Old myocardial infarction; I48.91 Unspecified atrial fibrillation; M81.0 Age-related osteoporosis without current pathological fracture; R65.20 Severe sepsis without septic shock; K21.9 Gastro-esophageal reflux disease without esophagitis; E11.22 Type 2 diabetes mellitus with diabetic chronic kidney disease; N40.0 Benign prostatic hyperplasia without lower urinary tract symptoms; E88.09 Other disorders of plasma-protein metabolism, not elsewhere classified; Z95.0 Presence of cardiac pacemaker; Z79.84 Long term (current) use of oral hypoglycemic drugs
CPT/HCPCS: 36410; 36415; 71045-TC; 80048-TC; 80053-TC; 80061-TC; 80076-TC; 81000-TC; 83540-TC; 83605-TC; 83735-TC; 83880; 84100-TC; 84484-TC; 85025-TC; 85730-TC; 87040-TC; 87081-TC; 87086-TC; 87186-TC; 93307-TC; 93970-TC; G0378; J1940; J2185; J2543; J2916; J3370; J7030; J7040; J7060

== ENCOUNTER 2019-09-24 16:09 | Emergency (ER) | payer OTHER ==
[~2019-09-24] VITALS: Ht 175.3 cm; Wt 94.8 kg
[~2019-09-24 16:09] MED LIST changes: +ACET-868 PO; +COLC0.6C3 PO; +CYAN100096 PO; +DABI110C PO; +EMPA25TA PO; +FERR325T23 PO; +GLIP5TAB13 PO; +MAGN400T26 PO; +METF-442 PO; +MINE105O TP; +MIRT15TA7 PO; +NITR0.4T48 SL; +POTA10TA11 PO; +TERA2CAP4 PO; +TERB30CR8 TP; +TORS20TA3 PO; -TRAM50TA2 PO
[2019-09-24 16:45] LABS: BASOPHILS # (AUTO) 0.1 /CMM (0.0-0.2); EOSINOPHILS % (AUTO) 0.5 % (0.0-6.0); HEMATOCRIT 37 % (39-51); LYMPHOCYTES # (AUTO) 1.7 /CMM (0.8-4.8); LYMPHOCYTES % (AUTO) 13.2 % (20.0-44.0); MEAN CORPUSCULAR HGB CONC 33 g/dl (31.0-36.0); MEAN CORPUSCULAR VOLUME 93 fL (80-96); MONOCYTES # (AUTO) 0.9 /CMM (0.1-1.30); NEUTROPHILS # (AUTO) 10.1 /CMM (1.8-8.9); NEUTROPHILS % (AUTO) 78.3 % (43.0-81.0); PLATELET COUNT (AUTO) 316 /CMM (150-450); RED BLOOD CELL COUNT(AUTO) 3.96 MIL/uL (4.5-6.0); WHITE BLOOD COUNT (AUTO) 12.9 K/uL (4.3-11.0)
--- NOTE | 2019-09-24 17:00 | NUR ---
Pt made aware of plan of care. NO obvious distress
[2019-09-24 17:30] LABS: CARBON DIOXIDE 28 mmol/L (21-32); CHLORIDE 92 mmol/L (98-107); POTASSIUM 3.9 mmol/L (3.5-5.1); SODIUM SERUM 133 mmol/L (136-145)
[2019-09-24 17:31] LABS: CREATININE 1.8 mg/dL (0.6-1.3); GLUCOSE 222 mg/dL (74-106); UREA NITROGEN, BLOOD 25 mg/dL (7-18)
[2019-09-24 17:32] LABS: ALANINE AMINOTRANSFERASE 23 U/L (12-78); ALKALINE PHOSPHATASE 91 U/L (46-116); ASPARTATE AMINOTRANSFERASE 18 U/L (15-37); BILIRUBIN,DIRECT 0.1 mg/dL (0.0-0.2); BILIRUBIN,TOTAL 0.7 mg/dL (0.2-1.0)
[2019-09-24 17:33] LABS: ALBUMIN 2.8 g/dL (3.4-5.0); TOTAL PROTEIN, SERUM 7.4 g/dL (6.4-8.2)
[2019-09-24] MEDS ORDERED: VANCOMYCIN 1 GM in IV D5W 250 ML IV STA (17:34)
[2019-09-24] MEDS ORDERED: ACETAMINOPHEN 325 MG TABLET PO STA (17:34)
[2019-09-24] MEDS ORDERED: MEROPENEM 1 G in IV NS 0.9% 100 ML IV STA (17:34)
[2019-09-24 17:37] LABS: CALCIUM, SERUM 8.8 mg/dL (8.5-10.1)
[2019-09-24] MEDS ORDERED: ACETAMINOPHEN 325 MG TABLET ONE (17:40)
[2019-09-24 17:48] LABS: APPEARANCE,URINE Cloudy (CLEAR); BILIRUBIN,URINE Negative (NEGATIVE); BLOOD, URINE Moderate Ery/uL (NEGATIVE); COLOR,URINE Yellow (YELLOW); KETONES,URINE Negative (NEGATIVE); LEUKOCYTE ESTERASE ,URINE Large (NEGATIVE); NITRITE, URINE Positive (NEGATIVE); PROTEIN,URINE Trace mg/dl (NEGATIVE); UGLUCOSE >=1000 mg/dL (NEGATIVE); UROBILINOGEN,URINE 0.2 EU/dL (0.2)
--- NOTE | 2019-09-24 18:00 | NUR ---
Updated with plan of care. Meds given as ordered. Status quo.
[2019-09-24 18:04] LABS: BACTERIA,URINE Many /HPF (None Seen); SQUAMOUS EPITHELIAL CELL,UR Few /HPF (None Seen); WBC,URINE 51-80 /HPF (0-3)
[2019-09-24 18:05] LABS: YEAST,URINE Moderate /HPF (None Seen)
--- NOTE | 2019-09-24 18:09 | NUR ---
CALLED [facility] AWAITING MD CALLBACK
[2019-09-24] MEDS ORDERED: IV NS 0.9% 1,000 ML BAG IV ONE (18:30)
[2019-09-24] MEDS ORDERED: FLUCONAZOLE (100 MG) 100 MG TABLET ONE (18:41)
[2019-09-24] MEDS ORDERED: FLUCONAZOLE (100 MG) 100 MG TABLET PO ONE (19:00)
--- NOTE | 2019-09-24 19:09 | NUR ---
NKE/Endorsed to COURT Chau
--- NOTE | 2019-09-24 19:19 | NUR ---
TRANSFER INFO: [facility] ACCEPTED BY DR LONG RN FOR REPORT: [phone] ALS ETA 2000
[2019-09-24 19:20] VITALS: BP 144/77
--- NOTE | 2019-09-24 19:20 | NUR ---
REPORT RECEIVED FROM COURT ALEJO FOR ADELINE
--- NOTE | 2019-09-24 19:52 | NUR ---
REPORT GIVEN TO COURT HOOVER FOR ADELINE
--- NOTE | 2019-09-24 20:16 | NUR ---
PT TRANSFERRED TO [facility] IN STABLE CONDITION. REPORT GIVEN TO EMS FOR REPORT
== END 2019-09-24 20:18 | disposition short-term general hospital (02) ==
LOC: ER 16:11
DX: R65.20 Severe sepsis without septic shock (principal); N30.00 Acute cystitis without hematuria; I25.10 Atherosclerotic heart disease of native coronary artery without angina pectoris; I11.0 Hypertensive heart disease with heart failure; I50.9 Heart failure, unspecified; E11.9 Type 2 diabetes mellitus without complications; N40.0 Benign prostatic hyperplasia without lower urinary tract symptoms; I48.91 Unspecified atrial fibrillation; Z95.0 Presence of cardiac pacemaker; Z88.6 Allergy status to analgesic agent; Z88.8 Allergy status to other drugs, medicaments and biological substances; Z79.899 Other long term (current) drug therapy; Z79.84 Long term (current) use of oral hypoglycemic drugs
CPT/HCPCS: 36415; 71045; 80048; 80076; 81001; 83605 ×2; 84145; 84484; 85025; 85730; 87040 ×2; 87086; 93005; 96365; 96367; 99291; J2185; J3370; J7030 ×2; J7060; 81000-TC; 87186-TC

== ENCOUNTER 2019-11-27 21:24 | Inpatient (IN) | payer MEDICARE, OTHER ==
[~2019-11-27] VITALS: Ht 162.6 cm; Wt 93.0 kg
--- NOTE | 2019-11-27 21:30 | NUR ---
BIBRA 889 FOR C/O BILATERAL LOWER ABD PAIN X 2 DAYS. + DYSURIA -N/V/D, PT TO BED 9,AWKAE, ALERT, NAMIBIAN SPEAKING, AAOX4, -SOB, PLACED ON MONITOR, PENDING ER PROVIDER NEIDA
[2019-11-27 22:17] LABS: BASOPHILS # (AUTO) 0.1 /CMM (0.0-0.2); BASOPHILS % (AUTO) 0.4 % (0.0-2.0); EOSINOPHILS % (AUTO) 1.7 % (0.0-6.0); HEMATOCRIT 25 % (39-51); HEMOGLOBIN 7.8 g/dL (13.5-17.5); LYMPHOCYTES # (AUTO) 1.6 /CMM (0.8-4.8); LYMPHOCYTES % (AUTO) 9.6 % (20.0-44.0); MEAN CORPUSCULAR HGB CONC 31 g/dl (31.0-36.0); MEAN CORPUSCULAR VOLUME 87 fL (80-96); MONOCYTES % (AUTO) 5.7 % (2.0-12.0); NEUTROPHILS # (AUTO) 13.9 /CMM (1.8-8.9); NEUTROPHILS % (AUTO) 82.6 % (43.0-81.0); PLATELET COUNT (AUTO) 484 /CMM (150-450); RED BLOOD CELL COUNT(AUTO) 2.88 MIL/uL (4.5-6.0); WHITE BLOOD COUNT (AUTO) 16.8 K/uL (4.3-11.0)
[2019-11-27 22:26] LABS: CALCIUM, SERUM 8.1 mg/dL (8.5-10.1); CARBON DIOXIDE 28 mmol/L (21-32); CHLORIDE 90 mmol/L (98-107); CREATININE 1.5 mg/dL (0.6-1.3); GLUCOSE 167 mg/dL (74-106); POTASSIUM 3.9 mmol/L (3.5-5.1); SODIUM SERUM 126 mmol/L (136-145); UREA NITROGEN, BLOOD 40 mg/dL (7-18)
[2019-11-27 22:32] LABS: ALANINE AMINOTRANSFERASE 13 U/L (12-78); ALBUMIN 2.1 g/dL (3.4-5.0); ALKALINE PHOSPHATASE 73 U/L (46-116); ASPARTATE AMINOTRANSFERASE 13 U/L (15-37); BILIRUBIN,DIRECT 0.1 mg/dL (0.0-0.2); BILIRUBIN,TOTAL 0.3 mg/dL (0.2-1.0); TOTAL PROTEIN, SERUM 6.6 g/dL (6.4-8.2)
[2019-11-27] MEDS ORDERED: IV NS 0.9% 1,000 ML BAG IV ONE (23:00)
[2019-11-27] MEDS ORDERED: PIPERACILLIN /TAZOBACTAM 3.375 G in IV D5W 50 ML IV ONE (23:00)
[2019-11-27] MEDS ORDERED: VANCOMYCIN 1 GM in IV D5W 250 ML IV ONE (23:00)
[2019-11-27] MEDS ORDERED: VANCOMYCIN 1 GM VIAL ONE (23:01)
[2019-11-27] MEDS ORDERED: PIPERACILLIN /TAZOBACTAM 3.375 G VIAL IV ONE (23:01)
--- NOTE | 2019-11-27 23:34 | NUR ---
URINE COLLECTED AND SENT TO LAB
--- NOTE | 2019-11-27 23:37 | NUR ---
CALLED [facility]
[2019-11-27 23:42] LABS: APPEARANCE,URINE Cloudy (CLEAR); BILIRUBIN,URINE Negative (NEGATIVE); BLOOD, URINE Moderate Ery/uL (NEGATIVE); COLOR,URINE Dark (YELLOW); KETONES,URINE Negative (NEGATIVE); LEUKOCYTE ESTERASE ,URINE Large (NEGATIVE); NITRITE, URINE Positive (NEGATIVE); PH,URINE 5.5 (5.0-8.0); PROTEIN,URINE 30 mg/dl (NEGATIVE); UGLUCOSE Negative (NEGATIVE)
--- NOTE | 2019-11-27 23:47 | NUR ---
DR. CORTEZ ON THE PHONE WITH [facility]
[2019-11-28] VITALS (7 sets, daily range): BP systolic 113–142; BP diastolic 59–78
--- NOTE | 2019-11-28 00:18 | NUR ---
BED ASSIGNMENT 116-1
[2019-11-28] MEDS ORDERED: ACETAMINOPHEN 325 MG TABLET PO PRN (01:30)
[2019-11-28] MEDS ORDERED: IV NS 0.9% 1,000 ML IV SCH (01:30)
[2019-11-28] MEDS ORDERED: ONDANSETRON HCL/PF 4 MG/2 ML VIAL IVP PRN (01:30)
--- NOTE | 2019-11-28 01:50 | NUR ---
REPORT GIVEN TO COURT PEGUERO FOR ADELINE
--- NOTE | 2019-11-28 02:10 | NUR ---
RN OPENING NOTE ADMIT PATIENT TO TELE UNIT ALERT ORIENTED X4 VERBALLY RESPONSIVE GREEK SPEAKER,R/O FOR COVID,NO SOB NOT ACUTE DISTRESS NOTED, DROPLET PRECAUTION,NO PAIN,BREATHING IS EVEN AND UNLABORED,HIS CHIEF COMPLAINT BILATERAL LOWER ABDOMINAL PAIN AND DYSURIA,ADMISSION DIAGNOSIS IS SEPSIS, HE IS ON IV NS 50CC/HR,IV SITE IS INTACT, CONTENT TO BOWEL AND BLADDER, SKIN IS INTACT WARM TO TOUCH,CONTINUE TO MONITOR.
[2019-11-28 02:15] LABS: BACTERIA,URINE Moderate /HPF (None Seen); SQUAMOUS EPITHELIAL CELL,UR Rare /HPF (None Seen); WBC,URINE TOO NUMEROUS TO COUN /HPF (0-3)
[2019-11-28 02:18] LABS: C-REACTIVE PROTEIN 15.3 mg/dL (0.0-0.9)
[2019-11-28] MEDS ORDERED: NITROGLYCERIN 0.4 MG/TAB BOTTLE SL PRN (02:30)
--- NOTE | 2019-11-28 06:34 | NUR ---
RN CLOSING NOTE PATIENT REMAINS IN STABLE CONDITION, WILL ENDORSE TO COMING SHIFT FOR CONTINUATION OF CARE,
[2019-11-28 07:30] LABS: FREE PSA 0.36 ng/mL (0.00-45); PROSTATE SPECIFIC ANTIGEN SCR 8.74 ng/mL (0.00-4.00)
[2019-11-28] MEDS ORDERED: FEE PK DOSING 1 MIN EA MC ONE (07:35)
[2019-11-28] MEDS: PIPERACILLIN /TAZOBACTAM 3.375 G in IV D5W 50 ML IV SCH ×3 (08:15→17:47)
[2019-11-28] MEDS: DULOXETINE HCL 20 MG CAPSULE.DR PO SCH (08:17)
[2019-11-28] MEDS: FERROUS SULFATE (325 MG) 325 MG/TAB TABLET PO SCH (08:17)
[2019-11-28] MEDS: CYANOCOBALAMIN 500 MCG TABLET PO SCH (08:17)
[2019-11-28] MEDS: POTASSIUM CHLORIDE 10 MEQ TABLET.SA PO SCH (08:17)
[2019-11-28] MEDS: PANTOPRAZOLE 40 MG VIAL IV SCH (08:17)
[2019-11-28] MEDS: MAGNESIUM OXIDE 400 MG TABLET PO SCH ×2 (08:18→17:47)
[2019-11-28] MEDS: glipiZIDE 5 MG TABLET PO SCH ×3 (08:18→17:47)
--- NOTE | 2019-11-28 08:30 | NUR ---
RN OPENING NOTES RECEIVED PT. IN BED. NO ACUTE DISTRESS NOTED. PT. A&OX4. PT. ON ROOM AIR, SATURATING WELL AT 97%. PT. ON TELE MONITOR, SR NOTED.PT. IV ACCESS ON R. AC INTACT, PATENT, FLUSHED WELL. R. HAND IV ACCESS INTACT, PATENT, FLUSHED WELL. PT. SAFETY MAINTAINED. CALL LIGHT WITHIN REACH. WILL CONTINUE TO MONITOR.
[2019-11-28] MEDS: METFORMIN 500 MG TABLET PO SCH ×2 (08:47→17:47)
[2019-11-28] MEDS ORDERED: Medication Not On Formulary EA (Empagliflozin (Jardiance) 25 MG) PO SCH (09:00)
[2019-11-28] MEDS ORDERED: TORSEMIDE 20 MG TABLET PO SCH (09:00)
[2019-11-28] MEDS: ACETAMINOPHEN 325 MG TABLET PO PRN (10:13)
[2019-11-28] MEDS: VANCOMYCIN 0.75 GM in IV D5W 250 ML IV SCH ×2 (10:57→23:51)
[2019-11-28] MEDS ORDERED: ATORVASTATIN 10 MG TABLET PO SCH (18:00)
[2019-11-28] MEDS ORDERED: DABIGATRAN ETEXILATE MESYLATE 110 MG PO SCH (18:00)
--- NOTE | 2019-11-28 19:00 | NUR ---
RN CLOSING NOTES PT. IN BED. NO ACUTE DISTRESS NOTED. PT. A&OX4. PT. ON ROOM AIR, SATURATING WELL AT 99%. PT. ON TELE MONITOR, SR NOTED.PT. IV ACCESS ON R. AC INTACT, PATENT, FLUSHED WELL. R. HAND IV ACCESS INTACT, PATENT, FLUSHED WELL. PT. SAFETY MAINTAINED. CALL LIGHT WITHIN REACH. WILL ENDORSE PLAN OF CARE TO ONCOMING NURSE
[2019-11-28] MEDS ORDERED: COLCHICINE 0.6 MG TABLET PO PRN (20:00)
--- NOTE | 2019-11-28 20:00 | NUR ---
RN OPENING NOTE RECEIVED PT IN BED RESTING. PT IS A/A/OX4. NO S/S OF DISTRESS.PT ON ROOM AIR, SATURATING ABOVE 97%. TELE MONITOR SHOWING SR AT 90s. PT HAS IV ACCESS ON R. AC AND R HAND SALINE LOCK, INTACT, PATENT, FLUSHED WELL. SAFETY MEASURES IN PLACE. BED AT LOWEST POSITION, LOCKED, SIDE RAILS UP X2, CALL LIGHT WITHIN REACH. WILL CONTINUE TO MONITOR.
[2019-11-28] MEDS: TORSEMIDE 20 MG TABLET PO SCH (21:17)
[2019-11-28] MEDS: MIRTAZAPINE 15 MG TABLET PO SCH (22:30)
[2019-11-28] MEDS: TERAZOSIN HCL 1 MG CAPSULE PO SCH (22:32)
[2019-11-28] MEDS: LATANOPROST EYE DROP 0.005% 2.5 ML BOTTLE EACHEYE SCH (22:33)
[2019-11-29] VITALS: BP 107/58
[2019-11-29] MEDS: PIPERACILLIN /TAZOBACTAM 3.375 G in IV D5W 50 ML IV SCH ×2 (00:49→06:00)
--- NOTE | 2019-11-29 03:40 | NUR ---
RN NOTE URINE NEEDED FOR LAB, SINCE PT WAS PRODUCING VERY LITTLE URINE I HAD TO DO BLADER SCAN AND I NOTICED HE RETAINED MORE THAN 500 ML URINE. CONTACTED PENELOPE ( CERTIFIED WELDING INSPECTOR) AND I GOT PENA INSERTION ORDER.
[2019-11-29 04:00] VITALS: BP 108/64
[2019-11-29] MEDS: ACETAMINOPHEN 325 MG TABLET PO PRN ×2 (05:32→17:32)
[2019-11-29 06:16] LABS: BASOPHILS # (AUTO) 0.1 /CMM (0.0-0.2); BASOPHILS % (AUTO) 0.2 % (0.0-2.0); EOSINOPHILS % (AUTO) 0.4 % (0.0-6.0); HEMATOCRIT 23 % (39-51); LYMPHOCYTES # (AUTO) 1.1 /CMM (0.8-4.8); LYMPHOCYTES % (AUTO) 4.8 % (20.0-44.0); MEAN CORPUSCULAR HGB CONC 31 g/dl (31.0-36.0); MEAN CORPUSCULAR VOLUME 87 fL (80-96); MONOCYTES # (AUTO) 1.1 /CMM (0.1-1.30); MONOCYTES % (AUTO) 4.6 % (2.0-12.0); NEUTROPHILS # (AUTO) 21.1 /CMM (1.8-8.9); PLATELET COUNT (AUTO) 422 /CMM (150-450); RED BLOOD CELL COUNT(AUTO) 2.59 MIL/uL (4.5-6.0); WHITE BLOOD COUNT (AUTO) 23.5 K/uL (4.3-11.0)
[2019-11-29 06:28] LABS: CALCIUM, SERUM 7.5 mg/dL (8.5-10.1); CARBON DIOXIDE 27 mmol/L (21-32); CHLORIDE 95 mmol/L (98-107); CREATININE 2.3 mg/dL (0.6-1.3); GLUCOSE 63 mg/dL (74-106); MAGNESIUM 1.5 mg/dL (1.8-2.4); PHOSPHORUS 4.2 mg/dL (2.5-4.9); POTASSIUM 4.1 mmol/L (3.5-5.1); SODIUM SERUM 127 mmol/L (136-145); UREA NITROGEN, BLOOD 39 mg/dL (7-18)
--- NOTE | 2019-11-29 06:28 | NUR ---
RN CLOSING NOTE PATIENT REMAINS IN STABLE CONDITION, NO ACUTE CHANGES DURING MY SHIFT WILL ENDORSE TO INCOMING SHIFT FOR CONTINUATION OF CARE,
--- NOTE | 2019-11-29 07:30 | NUR ---
RN opening note: Received patient in bed. Awake, alert and oriented x4. Able to make needs known. On room air, tolerating well. NO SOb and not in respiratory distress. No pain reported by patient. Tele monitor showing sinus rhythm. Iv site clean, dry, patent and intact. Boggs catheter draining urine mixed with scant blood and "abscess-like" fluids. No pain reported nor noted on patient. Call light in reach. Bed locked, low and at semi-ahumada's position. Side rails up x3. Safety ensured and observed. Will continue to monitor.
[2019-11-29 08:00] VITALS: BP 85/48
[2019-11-29] MEDS: METFORMIN 500 MG TABLET PO SCH (09:18)
[2019-11-29] MEDS: CYANOCOBALAMIN 500 MCG TABLET PO SCH (09:18)
[2019-11-29] MEDS: POTASSIUM CHLORIDE 10 MEQ TABLET.SA PO SCH (09:18)
[2019-11-29] MEDS: FERROUS SULFATE (325 MG) 325 MG/TAB TABLET PO SCH (09:18)
[2019-11-29] MEDS: glipiZIDE 5 MG TABLET PO SCH (09:19)
[2019-11-29] MEDS: DULOXETINE HCL 20 MG CAPSULE.DR PO SCH (09:19)
[2019-11-29] MEDS: PANTOPRAZOLE 40 MG VIAL IV SCH (09:19)
[2019-11-29] MEDS: MAGNESIUM OXIDE 400 MG TABLET PO SCH ×2 (09:19→17:32)
[2019-11-29] MEDS: TORSEMIDE 20 MG TABLET PO SCH (09:19)
[2019-11-29] MEDS ORDERED: IV NS 0.9% 1,000 ML IV PRN (09:50)
[2019-11-29] MEDS: VANCOMYCIN 0.75 GM in IV D5W 250 ML IV SCH ×3 (11:00→23:55)
[2019-11-29] MEDS: MEROPENEM 500 MG in IV NS 0.9% 50 ML IV SCH ×2 (11:09→22:13)
[2019-11-29 11:55] LABS: IRON, SERUM 7 ug/dl (50-175); TOTAL IRON BINDING CAPACITY 191 ug/dl (250-450)
[2019-11-29 12:00] VITALS: BP 79/49
[2019-11-29] MEDS: IV D5/0.45 NACL 1,000 ML IV PRN ×2 (12:14→22:18)
[2019-11-29] MEDS: DEXTROSE 50%-WATER 50 ML DISP.SYRIN IV PRN ×3 (12:14→22:49)
[2019-11-29] MEDS: Magnesium 1GM/D5W 100ML PREMIX 100 ML IV SCH ×2 (12:27→14:26)
[2019-11-29 15:08] LABS: THYROID STIMULATING HORMONE 5.387 uIU/mL (0.358-3.74)
[2019-11-29 16:00] VITALS: BP 74/53
[2019-11-29] MEDS: SOD FERRIC GLUC 125 MG in IV NS 0.9% 100 ML IV SCH (16:00)
[2019-11-29] MEDS: BLOOD SUGAR DIAGNOSTIC 1 EACH STRIP IN SCH ×2 (18:28→22:55)
--- NOTE | 2019-11-29 19:45 | NUR ---
Rn closing note: Patient remains in bed. Awake, alert and oriented x4. Able to make needs known. On room air, tolerating well. NO SOb and not in respiratory distress. Iv site clean, dry, patent and intact with D5 1/2NS @ 100mls/hr being toelrated well. Boggs catheter draining urine mixed with scant blood and "abscess-like" fluids. No pain reported nor noted on patient. Was seen by Tim Ortiz earlier on shift and made aware of Blood sugar and Blood Pressure values. Acknowledged information and MD orders noted and carried out. Patient remained awake, alert and oriented x4 throughout shift. Last BP taken at 103/59 with heart rate of 96 noted. Poor appetite also noted on patient with <10% of meals consumed. Awaiting urology consult with Dr. Ledbetter for patient issue. Call light in reach. Bed locked, low and at semi-ahumada's position. Side rails up x3. Safety ensured and observed. Due medications given. Treatment given as ordered. Endorsed to oncoming shift for ADELINE.
[2019-11-29 20:00] VITALS: BP 102/61
--- NOTE | 2019-11-29 20:00 | NUR ---
Rn closing note: Patient in bed. Awake, alert and oriented x4.welsh speaking. Able to make needs known. On room air, tolerating well. NO SOb and not in respiratory distress. Iv site clean, dry, patent and intact with D5 1/2NS @ 100mls/hr infusing well. Boggs catheter draining urine . Was seen by Dr Villalobos seen and examined the pts with order made and carried out .Dr villalobos spoke to pts re procedure rajani ,cystoscopy possible transurethral resection of mass /abscess. consent obtained from the pts , also place a call to Kevin Bonds (daughter) made aware of procedure rajani . will continue to monitor pts. Addendum: 11/30/19 at 0520 by OCTAVIO CURRIE RN carlos rn initial notes not closing notes.
--- NOTE | 2019-11-29 22:00 | NUR ---
Ms rn notes Blood sugar for 10pm is 36 mg/dl dext 50% given as ordered , pts is awake and responsive , will check bs in 30 minutes,will continue to monitor pts .
[2019-11-29] MEDS: LATANOPROST EYE DROP 0.005% 2.5 ML BOTTLE EACHEYE SCH (22:02)
[2019-11-29] MEDS: TERAZOSIN HCL 1 MG CAPSULE PO SCH (22:03)
[2019-11-29] MEDS: MIRTAZAPINE 15 MG TABLET PO SCH (22:04)
[2019-11-29] MEDS: INSULIN REGULAR, HUMAN 100 UNIT/ML 3 ML VIAL SQ PRN (22:58)
--- NOTE | 2019-11-29 23:25 | NUR ---
ms rn notes blood sugar rechecked 117mg/dl pts continue on d5 1/2 ns at 100cc/hr
--- NOTE | 2019-11-29 23:50 | NUR ---
ms rn notes spoke to kameron clerical production worker pharmacist from [facility] verified if ican give the vancomycin ,she said yes , vanco 750mg ivpb given as ordered.
--- NOTE | 2019-11-30 03:50 | NUR ---
ms rn notes pts c/o of feeling hot blood sugar check it was 37 mg/dl pts is awake and responsive ,again dext 50% given as ordered , ervin holley made aware with order to change IV fluids to D5w at 100cc/hr .
[2019-11-30] MEDS: DEXTROSE 50%-WATER 50 ML DISP.SYRIN IV PRN ×4 (03:58→22:44)
[2019-11-30 04:00] VITALS: BP 102/56
--- NOTE | 2019-11-30 05:00 | NUR ---
ms rn notes blood sugar recheck again 143mg/dl D5W at 100cc/hr on progress, will continue to monitor pts.
[2019-11-30] MEDS: IV D5W 1,000 ML IV PRN ×2 (05:02→17:48)
[2019-11-30 06:34] LABS: BASOPHILS % (AUTO) 0.2 % (0.0-2.0); EOSINOPHILS % (AUTO) 0.6 % (0.0-6.0); HEMATOCRIT 21 % (39-51); LYMPHOCYTES # (AUTO) 0.5 /CMM (0.8-4.8); LYMPHOCYTES % (AUTO) 2.1 % (20.0-44.0); MEAN CORPUSCULAR HGB CONC 31 g/dl (31.0-36.0); MEAN CORPUSCULAR VOLUME 87 fL (80-96); MONOCYTES % (AUTO) 4.6 % (2.0-12.0); NEUTROPHILS # (AUTO) 20.9 /CMM (1.8-8.9); NEUTROPHILS % (AUTO) 92.5 % (43.0-81.0); PLATELET COUNT (AUTO) 404 /CMM (150-450); RED BLOOD CELL COUNT(AUTO) 2.39 MIL/uL (4.5-6.0); WHITE BLOOD COUNT (AUTO) 22.5 K/uL (4.3-11.0)
[2019-11-30 06:38] LABS: HEMOGLOBIN 6.5 g/dL (13.5-17.5)
[2019-11-30 06:40] LABS: ALANINE AMINOTRANSFERASE 12 U/L (12-78); ALBUMIN 1.7 g/dL (3.4-5.0); ALKALINE PHOSPHATASE 61 U/L (46-116); ASPARTATE AMINOTRANSFERASE 12 U/L (15-37); BILIRUBIN,TOTAL 0.2 mg/dL (0.2-1.0); CALCIUM, SERUM 7.6 mg/dL (8.5-10.1); CARBON DIOXIDE 22 mmol/L (21-32); CHLORIDE 92 mmol/L (98-107); CREATININE 2.8 mg/dL (0.6-1.3); GLUCOSE 138 mg/dL (74-106); MAGNESIUM 2.1 mg/dL (1.8-2.4); PHOSPHORUS 4.5 mg/dL (2.5-4.9); POTASSIUM 4.5 mmol/L (3.5-5.1); SODIUM SERUM 122 mmol/L (136-145); UREA NITROGEN, BLOOD 38 mg/dL (7-18)
--- NOTE | 2019-11-30 06:53 | NUR ---
ms rn notes recieved a call from larisa ( LAB)with critical result hemoglobin 6.5 relayed to ervin rental car ferry driver with order to give 1 unit of prbc , will endorse to neena weston for continuity of care.
[2019-11-30] MEDS ORDERED: ANESTHESIA TRAY IN PYXIS 1 EA TRAY MC ONE (07:40)
[2019-11-30] MEDS: BLOOD SUGAR DIAGNOSTIC 1 EACH STRIP IN SCH ×5 (07:51→22:42)
[2019-11-30 08:00] VITALS: BP 144/77
[2019-11-30] MEDS: PANTOPRAZOLE 40 MG VIAL IV SCH (08:01)
[2019-11-30] MEDS ORDERED: FENTANYL PF 100MCG/2ML AMPUL ONE (08:31)
[2019-11-30] MEDS: MAGNESIUM OXIDE 400 MG TABLET PO SCH ×2 (09:00→17:00)
[2019-11-30] MEDS: CYANOCOBALAMIN 500 MCG TABLET PO SCH (09:00)
[2019-11-30] MEDS: DULOXETINE HCL 20 MG CAPSULE.DR PO SCH (09:00)
[2019-11-30 09:41] LABS: BAND % (MANUAL) 1 % (0.0-5.0); EOSINOPHILS % (MANUAL) 2 % (0-4); LYMPHOCYTES % (MANUAL) 2 % (16-48); MONOCYTES % (MANUAL) 4 % (0-11.0); NEUTROPHILS % (MANUAL) 91 (42-76)
--- NOTE | 2019-11-30 10:35 | NUR ---
RN NOTE RECEIVED PATIENT FROM SURGERY. PATIENT IS ASLEEP HARD TO AROUSE, ON 2L OXYGEN SATURATING WELL, NO RESPIRATORY DISTRESS NOTED. BREATHINGS IS EVEN AND UNLABORED. O2 SAT AT 98%. BLOOD TRANSFUSION WAS STARTED IN OR, CURRENTLY RBC IS INFUSING AT 125ML/HR, PATIENT IS TOLERATING WELL, NO DISTRESS NOTED, VITAL SIGNS ARE STABLE. NO SIGNS OF ALLERGIC REACTION NOTED. PENA CATHETER WAS REPLACED IN THE OR PER REPORT, BRIGHT RED URINE NOTED. PATIENT WILL REMAIN NPO UNTIL HE IS MORE ALERT. SAFETY IS MAINTAINED, CALL LIGHT WITHIN REACH, WILL CONTINUE TO MONITOR CLOSELY.
[2019-11-30] MEDS: MEROPENEM 500 MG in IV NS 0.9% 50 ML IV SCH ×2 (10:45→22:01)
--- NOTE | 2019-11-30 10:53 | NUR ---
RN NOTE RECEIVED PATIENT FROM OR, BLOOD TRANSFUSSION WAS STARTED IN OR AT 0920 BY CARLOS YUN. TRANSFUSION IS RUNNING AT THE MOMENT, ALMOST DONE WITH THE INFUSION. VITAL SIGNS ARE STABLE. BP 114/60, HR 94, O2 98%, TEMP 96.9, NO COMPLAINS OF PAIN AT THE MOMENT. SAFETY MAINTAINED, CALL LIGHT WITHIN REACH, WILL CONTINUE TO MONITOR CLOSELY.
[2019-11-30 12:00] VITALS: BP 115/69
[2019-11-30 13:06] LABS: IMMUNOGLOBULIN A, SERUM 425 mg/dL (61-437); IMMUNOGLOBULIN G, SERUM 924 mg/dL (603-1613); IMMUNOGLOBULIN M, SERUM 63 mg/dL (15-143)
[2019-11-30] MEDS: SOD FERRIC GLUC 125 MG in IV NS 0.9% 100 ML IV SCH (15:14)
[2019-11-30 16:00] VITALS: BP 117/64
[2019-11-30 18:00] VITALS: BP 117/64
[2019-11-30 20:00] VITALS: BP 128/71
--- NOTE | 2019-11-30 20:03 | NUR ---
RN CLOSING NOTES ENDORSED TO PM NURSE FOR CONTINUITY OF CARE. ALL PATIENT NEEDS MET, CALL LIGHT WITHIN REACH, PM NURSE WILL CONTINUE CARE.
[2019-11-30] MEDS: MIRTAZAPINE 15 MG TABLET PO SCH (21:55)
[2019-11-30] MEDS: TERAZOSIN HCL 1 MG CAPSULE PO SCH (21:59)
[2019-11-30] MEDS: LATANOPROST EYE DROP 0.005% 2.5 ML BOTTLE EACHEYE SCH (22:02)
[2019-11-30] MEDS: INSULIN REGULAR, HUMAN 100 UNIT/ML 3 ML VIAL SQ PRN (23:57)
[2019-12-01] MEDS: IV D5W 1,000 ML IV PRN (03:20)
[2019-12-01 04:00] VITALS: BP 91/55
[2019-12-01 06:32] LABS: BASOPHILS # (AUTO) 0.1 /CMM (0.0-0.2); BASOPHILS % (AUTO) 0.3 % (0.0-2.0); EOSINOPHILS % (AUTO) 2.3 % (0.0-6.0); HEMATOCRIT 22 % (39-51); HEMOGLOBIN 7.1 g/dL (13.5-17.5); LYMPHOCYTES # (AUTO) 1.2 /CMM (0.8-4.8); LYMPHOCYTES % (AUTO) 7.4 % (20.0-44.0); MEAN CORPUSCULAR HGB CONC 32 g/dl (31.0-36.0); MEAN CORPUSCULAR VOLUME 87 fL (80-96); MONOCYTES # (AUTO) 0.8 /CMM (0.1-1.30); MONOCYTES % (AUTO) 5.2 % (2.0-12.0); NEUTROPHILS # (AUTO) 13.2 /CMM (1.8-8.9); NEUTROPHILS % (AUTO) 84.8 % (43.0-81.0); PLATELET COUNT (AUTO) 361 /CMM (150-450); RED BLOOD CELL COUNT(AUTO) 2.56 MIL/uL (4.5-6.0); WHITE BLOOD COUNT (AUTO) 15.6 K/uL (4.3-11.0)
[2019-12-01 06:52] LABS: CALCIUM, SERUM 7.5 mg/dL (8.5-10.1); CARBON DIOXIDE 20 mmol/L (21-32); CHLORIDE 93 mmol/L (98-107); CREATININE 2.6 mg/dL (0.6-1.3); GLUCOSE 54 mg/dL (74-106); PHOSPHORUS 4.8 mg/dL (2.5-4.9); POTASSIUM 4.5 mmol/L (3.5-5.1); SODIUM SERUM 124 mmol/L (136-145); UREA NITROGEN, BLOOD 37 mg/dL (7-18)
--- NOTE | 2019-12-01 07:40 | NUR ---
RN notes No significant changed of condition, Blood sugar was low at 2200 blood sugar level 53. 50% dextrose injectable administered. After 1 hour bs wa 127. Endorsed to next shift for continuity of care.
[2019-12-01 08:00] VITALS: BP 118/76
--- NOTE | 2019-12-01 08:11 | NUR ---
RN OPENING NOTES RECEIVED PATIENT SLEEPING IN BED COMFORTABLY, EASILY AROUSED. PT IS AOX4, VERBAL, AMHARIC SPEAKING, AND ON BED REST. HE IS ON 2L OF OXYGEN VIA NC, TOLERATING WELL, NO SOB OR RESP DISTRESS. PENA CATH IS PATENT AND INTACT, DRAINING URINE BY GRAVITY. PT ON 2 G SODIUM DIET. SKIN IS INTACT. IV SITE ON RHAND 20 G IS PATENT AND INTACT, RUNNING D5 NS AT 50 ML/HR. SAFETY MEASURES HAVE BEEN IMPLEMENTED, CALL LIGHT IS WITHIN REACH, BED IS IN LOWEST AND LOCKED POSITION, SIDE RAILS UP X2, WILL CONTINUE TO MONITOR FOR ANY CHANGES.
[2019-12-01] MEDS: BLOOD SUGAR DIAGNOSTIC 1 EACH STRIP IN SCH ×4 (08:12→22:30)
[2019-12-01] MEDS: PANTOPRAZOLE 40 MG VIAL IV SCH (08:33)
[2019-12-01] MEDS: MAGNESIUM OXIDE 400 MG TABLET PO SCH ×2 (08:33→18:03)
[2019-12-01] MEDS: DEXTROSE 50%-WATER 50 ML DISP.SYRIN IV PRN (08:33)
[2019-12-01] MEDS: CYANOCOBALAMIN 500 MCG TABLET PO SCH (08:33)
[2019-12-01] MEDS: DULOXETINE HCL 20 MG CAPSULE.DR PO SCH (08:33)
[2019-12-01] MEDS: IV D5/ 0.9% NACL 1,000 ML IV PRN (08:37)
[2019-12-01] MEDS: MEROPENEM 500 MG in IV NS 0.9% 50 ML IV SCH ×2 (10:22→22:31)
[2019-12-01] MEDS: SOD FERRIC GLUC 125 MG in IV NS 0.9% 100 ML IV SCH (14:41)
[2019-12-01 16:00] VITALS: BP 128/80
--- NOTE | 2019-12-01 18:54 | NUR ---
RN CLOSING NOTES WILL ENDORSED PATIENT TO PM NURSE FOR CONTINUITY OF CARE. ALL PATIENT NEEDS MET, CALL LIGHT WITHIN REACH, PM NURSE WILL CONTINUE CARE
--- NOTE | 2019-12-01 19:30 | NUR ---
RN OPENING NOTE RECEIVED PT IN BED RESTING. PT IS A/A/OX4. NO S/S OF DISTRESS.PT ON 2L VIA NC , SATURATING ABOVE 97%. PT HAS UNLABORED BREATHING. PT HAS IV ACCESS ON L HAND 20 G D5 NS RUNNING AT 50 ML/H. PT HAS PENA INTACT AND DRAINS URINE WELL. SAFETY MEASURES IN PLACE. BED AT LOWEST POSITION, LOCKED, SIDE RAILS UP X2, CALL LIGHT WITHIN REACH. WILL CONTINUE TO MONITOR.
[2019-12-01 19:33] LABS: APPEARANCE,URINE CLOUDY (CLEAR); BILIRUBIN,URINE NEGATIVE (NEGATIVE); BLOOD, URINE LARGE Ery/uL (NEGATIVE); COLOR,URINE YELLOW (YELLOW); KETONES,URINE NEGATIVE (NEGATIVE); LEUKOCYTE ESTERASE ,URINE LARGE (NEGATIVE); NITRITE, URINE NEGATIVE (NEGATIVE); PROTEIN,URINE 30 mg/dl (NEGATIVE); UGLUCOSE NEGATIVE (NEGATIVE); UROBILINOGEN,URINE 0.2 EU/dL (0.2)
[2019-12-01 19:34] LABS: CREATININE, URINE 20.5 MG/DL (30.0-125.0); URINE TOTAL PROTEIN 59.5 mg/dL (0-11.9)
[2019-12-01 19:45] LABS: BACTERIA,URINE 1+ /HPF (None Seen); RBC,URINE 51-80 /HPF (0-2); SQUAMOUS EPITHELIAL CELL,UR 0-2 /HPF (None Seen); WBC,URINE TOO NUMEROUS TO COUN /HPF (0-3)
[2019-12-01 19:46] LABS: URINE AMORPHOUS URATE Many /HPF (None Seen)
[2019-12-01 20:26] LABS: EOSINOPHIL,URINE None Seen
[2019-12-01] MEDS: TERAZOSIN HCL 1 MG CAPSULE PO SCH (22:33)
[2019-12-01] MEDS: MIRTAZAPINE 15 MG TABLET PO SCH (22:34)
[2019-12-01] MEDS: LATANOPROST EYE DROP 0.005% 2.5 ML BOTTLE EACHEYE SCH (22:36)
[2019-12-01] MEDS ORDERED: VANCOMYCIN 0.75 GM in IV D5W 250 ML IV SCH (23:00)
[2019-12-02 04:00] VITALS: BP 121/86
[2019-12-02] MEDS: IV D5/ 0.9% NACL 1,000 ML IV PRN (04:32)
[2019-12-02 06:29] LABS: BASOPHILS # (AUTO) 0.1 /CMM (0.0-0.2); BASOPHILS % (AUTO) 1.3 % (0.0-2.0); EOSINOPHILS % (AUTO) 1.6 % (0.0-6.0); HEMATOCRIT 24 % (39-51); HEMOGLOBIN 7.6 g/dL (13.5-17.5); LYMPHOCYTES # (AUTO) 0.8 /CMM (0.8-4.8); MEAN CORPUSCULAR HGB CONC 32 g/dl (31.0-36.0); MEAN CORPUSCULAR VOLUME 88 fL (80-96); MONOCYTES # (AUTO) 0.6 /CMM (0.1-1.30); MONOCYTES % (AUTO) 5.8 % (2.0-12.0); NEUTROPHILS # (AUTO) 8.6 /CMM (1.8-8.9); NEUTROPHILS % (AUTO) 83.3 % (43.0-81.0); PLATELET COUNT (AUTO) 365 /CMM (150-450); WHITE BLOOD COUNT (AUTO) 10.3 K/uL (4.3-11.0)
--- NOTE | 2019-12-02 06:45 | NUR ---
RN CLOSING NOT PT REMAINS STABLE DURING MY SHIFT. NO ACUTE CHANGES AND VSS. WILL ENDORSE TO INCOMING SHIFT FOR ADELINE.
[2019-12-02 06:50] LABS: CALCIUM, SERUM 8.2 mg/dL (8.5-10.1); CARBON DIOXIDE 22 mmol/L (21-32); CHLORIDE 102 mmol/L (98-107); CREATININE 1.9 mg/dL (0.6-1.3); GLUCOSE 135 mg/dL (74-106); POTASSIUM 4.2 mmol/L (3.5-5.1); SODIUM SERUM 133 mmol/L (136-145); UREA NITROGEN, BLOOD 29 mg/dL (7-18)
--- NOTE | 2019-12-02 07:25 | NUR ---
RN OPENING NOTE Received patient asleep in bed calm and relaxed on RA no signs of distress. Patient is AO x4 tanzanian speaking but understands a little bit of croatian. Patient is able to communicate needs. On a FC draining cloudy urine by gravity. No signs of distention no co pain or discomfort. Has L hand #20 running D5NS @ 50ml/hr. Safety measures reinforced call light within reach. Bed locked and on lowest position. Will cont to monitor.
[2019-12-02 08:00] VITALS: BP_SYST 129; BP_DIAS 64; BP_DIAS 84
[2019-12-02] MEDS: BLOOD SUGAR DIAGNOSTIC 1 EACH STRIP IN SCH ×4 (08:03→22:23)
[2019-12-02] MEDS: INSULIN REGULAR, HUMAN 100 UNIT/ML 3 ML VIAL SQ PRN ×4 (08:08→22:32)
[2019-12-02] MEDS: CYANOCOBALAMIN 500 MCG TABLET PO SCH (09:02)
[2019-12-02] MEDS: PANTOPRAZOLE 40 MG VIAL IV SCH (09:02)
[2019-12-02] MEDS: DULOXETINE HCL 20 MG CAPSULE.DR PO SCH (09:02)
[2019-12-02] MEDS: MAGNESIUM OXIDE 400 MG TABLET PO SCH ×2 (09:02→18:00)
[2019-12-02] MEDS: MEROPENEM 500 MG in IV NS 0.9% 50 ML IV SCH ×2 (09:04→22:27)
--- NOTE | 2019-12-02 09:54 | NUR ---
no consent for ct and high cren. 1.9. spoke to nurse(gabi) and will call back for exam. yw
--- NOTE | 2019-12-02 11:00 | NUR ---
CONSENT FOR CT OBTAINED. TRANSLATED BY MARY CASTILLO.
[2019-12-02 14:16] LABS: *SPE A/G RATIO 0.7 (0.7-1.7); *SPE ALPHA-1-GLOBULIN 0.4 g/dL (0.0-0.4); *SPE ALPHA-2-GLOBULIN 0.8 g/dL (0.4-1.0); *SPE GLOBULIN, TOTAL 2.9 g/dL (2.2-3.9); *SPE M-SPIKE Not Observed g/dL (Not Observed); *SPEGAMMA GLOBULIN 0.8 g/dL (0.4-1.8)
[2019-12-02] MEDS: SOD FERRIC GLUC 125 MG in IV NS 0.9% 100 ML IV SCH (14:45)
[2019-12-02 16:00] VITALS: BP 123/74
--- NOTE | 2019-12-02 19:35 | NUR ---
RN CLOSING NOTE Patient in bed calm and relaxed. All due meds given. Vital signs within normal limits. No co pain or discomfort. Cont on hospitalization. Kept clean and dry wound dressing done. Assisted with hygiene. Safety measures reinforced. Call light within reach. Bed locked and on lowest position. Endorsed to corporate affairs manager nurse for jax.
--- NOTE | 2019-12-02 20:10 | NUR ---
RN OPENING NOTE RECEIVED PATIENT IN BED ALERT ORINTED X4 VERBALLY RESPONSIVE ALBLE TO MAKE NEEDS KNOWN BREATHING IS EVEN AND UNLABORED NO PAIN NO SOB NOT ACUTE DISTRESS NOTED AT THIS TIME HE ON PENA CATHETER.URINE DRAINING YELLOW AND CLEAR.CONTINUE TO MONITOR.
[2019-12-02 20:35] VITALS: BP 116/61
[2019-12-02] MEDS: LATANOPROST EYE DROP 0.005% 2.5 ML BOTTLE EACHEYE SCH (22:05)
[2019-12-02] MEDS: MIRTAZAPINE 15 MG TABLET PO SCH (22:11)
[2019-12-02] MEDS: TERAZOSIN HCL 1 MG CAPSULE PO SCH (22:11)
[2019-12-03] VITALS: BP 126/75
[2019-12-03 00:28] VITALS: BP 126/75
[2019-12-03 04:00] VITALS: BP 120/72
--- NOTE | 2019-12-03 07:15 | NUR ---
RN CLOSING NOTE RESIDENT REMAINS IN STABLE CONDITION,ALERT ORIENTED VERBALLY RESPONSIVE NO SOB NOT ACUTE DISTRESS NOTED,ON ROOM AIR ALL DUE MEDS GIVEN MD ORDERED HE TOLERATED WELL,KEPT CLEAN AND DRY ALL THE TIME,ALL NEEDS MET.HE HAS CT ABDOMEN,CT PELVIC UROGRAM TODAY ENDORSE TO MORNING NURSE, FOR CONTINUATION OF CARE.
[2019-12-03] MEDS: BLOOD SUGAR DIAGNOSTIC 1 EACH STRIP IN SCH ×4 (07:30→22:20)
[2019-12-03 07:57] LABS: ALBUMIN 1.6 g/dL (3.4-5.0); BILIRUBIN,TOTAL 0.2 mg/dL (0.2-1.0); CALCIUM, SERUM 8.5 mg/dL (8.5-10.1); CREATININE 1.2 mg/dL (0.6-1.3); MAGNESIUM 2.1 mg/dL (1.8-2.4); PHOSPHORUS 3.5 mg/dL (2.5-4.9); TOTAL PROTEIN, SERUM 5.8 g/dL (6.4-8.2)
[2019-12-03 08:00] VITALS: BP_SYST 104; BP_SYST 149; BP_DIAS 60; BP_DIAS 71
[2019-12-03 08:00] LABS: BASOPHILS # (AUTO) 0.1 /CMM (0.0-0.2); BASOPHILS % (AUTO) 0.7 % (0.0-2.0); EOSINOPHILS % (AUTO) 1.5 % (0.0-6.0); HEMATOCRIT 27 % (39-51); LYMPHOCYTES # (AUTO) 1.2 /CMM (0.8-4.8); LYMPHOCYTES % (AUTO) 11.2 % (20.0-44.0); MEAN CORPUSCULAR HGB CONC 30 g/dl (31.0-36.0); MEAN CORPUSCULAR VOLUME 90 fL (80-96); MONOCYTES # (AUTO) 0.8 /CMM (0.1-1.30); MONOCYTES % (AUTO) 7.5 % (2.0-12.0); NEUTROPHILS # (AUTO) 8.6 /CMM (1.8-8.9); NEUTROPHILS % (AUTO) 79.1 % (43.0-81.0); PLATELET COUNT (AUTO) 391 /CMM (150-450); RED BLOOD CELL COUNT(AUTO) 2.95 MIL/uL (4.5-6.0); WHITE BLOOD COUNT (AUTO) 10.9 K/uL (4.3-11.0)
--- NOTE | 2019-12-03 08:17 | NUR ---
MS/RN NOTE THE PATIENT IS RECEIVED FROM [facility]. THE PATIENT BROUGHT TO THE FLOOR ON A BED. PATIENT IS ALERT AND ORIENTED X3. DENIES PAIN. IN ROOM AIR AND DENIES SOB. RESPIRATION REGULAR AND UNLABORED. THE PATIENT IS IN NO APPARENT DISTRESS. NOTED LEFT HAND G 20 PATENT AND SALINE LOCKED. PATIENT IS PROVIDED ORIENTATION ABOUT THE ROOM/UNIT AND HE VERBALIZED UNDERSTANDING. BED LOW AND LOCKED. SIDE RAILS UP X3. CALL LIGHT WITHIN REACH. WILL CONTINUE TO MONITOR.
[2019-12-03] MEDS ORDERED: IOHEXOL-300 100 ML VIAL IV ONE (08:43)
[2019-12-03] MEDS ORDERED: IV NS 0.9% 250 ML IV ONE (08:44)
--- NOTE | 2019-12-03 08:53 | NUR ---
MS/RN NOTE THE PATIENT REFUSED BLOOD SUGAR CHECK DESPITE EXPLAINING RISKS AND BENEFITS. PER PATIENT HE WANTS TO REST AND DOES NOT WANT TO BE POKED.
--- NOTE | 2019-12-03 08:56 | NUR ---
MS/RN NOTE THE PATIENT IS TAKEN FOR CT UROGRAM. THE PATIENT LEFT THE UNIT IN STABLE CONDITION.
--- NOTE | 2019-12-03 10:02 | NUR ---
MS/RN NOTE THE PATIENT BROUGHT BACK FROM RADIOLOGY DEPARTMENT. THE PATIENT IS IN NO APPARENT DISTRESS.
[2019-12-03] MEDS: CYANOCOBALAMIN 500 MCG TABLET PO SCH (10:15)
[2019-12-03] MEDS: MAGNESIUM OXIDE 400 MG TABLET PO SCH ×2 (10:15→19:01)
[2019-12-03] MEDS: DULOXETINE HCL 20 MG CAPSULE.DR PO SCH (10:15)
[2019-12-03] MEDS: PANTOPRAZOLE 40 MG TABLET.DR PO SCH (10:15)
--- NOTE | 2019-12-03 11:08 | NUR ---
MS/RN NOTE MERREM 500 MG DUE AT 1000 IS NOT ADMINISTERED YET DUE TO PHARMACY HAS NOT DELIVERED THE MEDICATION.
[2019-12-03] MEDS: MEROPENEM 500 MG in IV NS 0.9% 50 ML IV SCH ×2 (12:27→22:22)
[2019-12-03] MEDS: INSULIN REGULAR, HUMAN 100 UNIT/ML 3 ML VIAL SQ PRN ×2 (12:50→22:33)
[2019-12-03] MEDS: SOD FERRIC GLUC 125 MG in IV NS 0.9% 100 ML IV SCH (15:05)
[2019-12-03] MEDS: IV D5/ 0.9% NACL 1,000 ML IV PRN (15:10)
[2019-12-03 16:00] VITALS: BP 127/76
--- NOTE | 2019-12-03 19:03 | NUR ---
MS/RN NOTE THE PATIENT ALERT AND ORIENTED X4. DENIES SOB. RESPIRATION REGULAR AND UNLABORED. DENIES PAIN. THE PATIENT IN NO APPARENT DISRTESS. LEFT HAND G 20 PATENT AND D5 NS INFUSING AT 50 ML/HR AND NO S/S INFILTRATION NOTED. BED LOW AND LOCKED. SIDE RAILS UP X3. CALL LIGHT WITHIN REACH. WILL ENDORSE TO BELLING MACHINE OPERATOR.
--- NOTE | 2019-12-03 19:15 | NUR ---
RN OPENING NOTES Received patient awake, resting on bed. On RA, denies any discomfort at this time. On fall and and aspiration precautions. Kept on bed clean, dry and comfortable. Will continue to monitor accordingly.
[2019-12-03 20:00] VITALS: BP 152/92
[2019-12-03] MEDS: TERAZOSIN HCL 1 MG CAPSULE PO SCH (22:22)
[2019-12-03] MEDS: MIRTAZAPINE 15 MG TABLET PO SCH (22:23)
[2019-12-03] MEDS: LATANOPROST EYE DROP 0.005% 2.5 ML BOTTLE EACHEYE SCH (22:31)
--- NOTE | 2019-12-04 06:23 | NUR ---
RN CLOSING NOTES Patient asleep on bed, easily awaken. On RA, no SOB/respiratory distress noted. Patient denies any discomfort at this time. Afebrile the whole shift, no new complaints made. All nursing needs attended. Due meds given as ordered. On fall and aspiration precautions. Kept on bed clean, dry and comfortable. Endorsed.
[2019-12-04] MEDS: BLOOD SUGAR DIAGNOSTIC 1 EACH STRIP IN SCH ×4 (06:48→21:28)
--- NOTE | 2019-12-04 07:00 | NUR ---
MS RN NOTES PATIENT IN BED ALERT ORIENTED X 3. NO ACUTE DISTRESS NOTED. BREATHING UNLABORED. DENIED ANY PAIN.IV ACCESS PATENT AND INTACT. NO REDNESS , NO SWELLING NOTED.PENA CATHETER INTACT DRAINING WELL. SAFETY MEASURES IN PLACE. CALL LIGHT WITHIN REACH WILL CONTINUE TO MONITOR ACCORDINGLY.
[2019-12-04] MEDS: INSULIN REGULAR, HUMAN 100 UNIT/ML 3 ML VIAL SQ PRN ×3 (07:17→21:33)
[2019-12-04 07:42] LABS: CALCIUM, SERUM 8.2 mg/dL (8.5-10.1); POTASSIUM 3.5 mmol/L (3.5-5.1)
[2019-12-04 08:00] VITALS: BP 160/72
[2019-12-04] MEDS: MAGNESIUM OXIDE 400 MG TABLET PO SCH ×2 (08:42→17:29)
[2019-12-04] MEDS: PANTOPRAZOLE 40 MG TABLET.DR PO SCH (08:42)
[2019-12-04] MEDS: DULOXETINE HCL 20 MG CAPSULE.DR PO SCH (08:42)
[2019-12-04] MEDS: CYANOCOBALAMIN 500 MCG TABLET PO SCH (08:42)
[2019-12-04] MEDS: VALSARTAN 80 MG TABLET PO SCH (08:43)
[2019-12-04] MEDS: MEROPENEM 500 MG in IV NS 0.9% 50 ML IV SCH ×2 (10:07→21:33)
[2019-12-04] MEDS: IV D5/ 0.9% NACL 1,000 ML IV PRN (14:43)
[2019-12-04 16:00] VITALS: BP 131/75
--- NOTE | 2019-12-04 18:50 | NUR ---
MS RN NOTES PATIENT IN BED ALERT ORIENTED X 3. NO ACUTE DISTRESS NOTED. BREATHING UNLABORED. DENIED ANY PAIN.IV ACCESS PATENT AND INTACT. NO REDNESS , NO SWELLING NOTED. PATIENT TOLERATED CURRENT DIET WELL. PENA CATHETER INTACT DRAINING WELL. NEEDS ATTENDED AND ANTICIPATED. KEPT CLEAN, DRY AND COMFORTABLE. SAFETY MEASURES IN PLACE. CALL LIGHT WITHIN REACH. WILL ENDORSE TO NIGHT NURSE FOR CONTINUITY OF CARE.
--- NOTE | 2019-12-04 19:05 | NUR ---
RN OPENING NOTES Received patient awake, resting on bed. On RA, no SOB/respiratory distress noted. No s/sx of discomfort noted at this time. Kept on bed clean, dry and comfortable. Call light within easy reach. Will continue to monitor accordingly.
[2019-12-04 19:44] VITALS: BP 115/69
[2019-12-04] MEDS: TAMSULOSIN 0.4 MG CAP.SR.24H PO SCH (21:27)
[2019-12-04] MEDS: FINASTERIDE (5 MG) 5 MG TABLET PO SCH (21:27)
[2019-12-04] MEDS: MIRTAZAPINE 15 MG TABLET PO SCH (21:27)
[2019-12-04] MEDS: TERAZOSIN HCL 1 MG CAPSULE PO SCH (21:27)
[2019-12-04] MEDS: LATANOPROST EYE DROP 0.005% 2.5 ML BOTTLE EACHEYE SCH (21:28)
--- NOTE | 2019-12-05 07:00 | NUR ---
MS RN NOTES PATIENT IN BED ALERT ORIENTED X 3. NO ACUTE DISTRESS NOTED. BREATHING UNLABORED. DENIED ANY PAIN.IV ACCESS PATENT AND INTACT. NO REDNESS , NO SWELLING NOTED. SAFETY MEASURES IN PLACE. CALL LIGHT WITHIN REACH. WILL CONTINUE TO MONITOR ACCORDINGLY.
[2019-12-05] MEDS: BLOOD SUGAR DIAGNOSTIC 1 EACH STRIP IN SCH ×4 (07:12→21:43)
[2019-12-05 07:44] LABS: BASOPHILS # (AUTO) 0.1 /CMM (0.0-0.2); BASOPHILS % (AUTO) 0.8 % (0.0-2.0); EOSINOPHILS % (AUTO) 2.6 % (0.0-6.0); HEMATOCRIT 24 % (39-51); HEMOGLOBIN 7.3 g/dL (13.5-17.5); LYMPHOCYTES # (AUTO) 1.4 /CMM (0.8-4.8); LYMPHOCYTES % (AUTO) 12.8 % (20.0-44.0); MEAN CORPUSCULAR HGB CONC 31 g/dl (31.0-36.0); MEAN CORPUSCULAR VOLUME 90 fL (80-96); MONOCYTES # (AUTO) 0.8 /CMM (0.1-1.30); MONOCYTES % (AUTO) 7.6 % (2.0-12.0); NEUTROPHILS # (AUTO) 8.5 /CMM (1.8-8.9); NEUTROPHILS % (AUTO) 76.2 % (43.0-81.0); PLATELET COUNT (AUTO) 361 /CMM (150-450); RED BLOOD CELL COUNT(AUTO) 2.63 MIL/uL (4.5-6.0); WHITE BLOOD COUNT (AUTO) 11.2 K/uL (4.3-11.0)
[2019-12-05 08:00] VITALS: BP 155/74
[2019-12-05 08:02] LABS: ALBUMIN 1.6 g/dL (3.4-5.0); BILIRUBIN,TOTAL 0.2 mg/dL (0.2-1.0); CREATININE 0.8 mg/dL (0.6-1.3); MAGNESIUM 1.7 mg/dL (1.8-2.4); PHOSPHORUS 2.1 mg/dL (2.5-4.9); POTASSIUM 3.8 mmol/L (3.5-5.1); TOTAL PROTEIN, SERUM 5.4 g/dL (6.4-8.2)
[2019-12-05] MEDS: DULOXETINE HCL 20 MG CAPSULE.DR PO SCH (09:09)
[2019-12-05] MEDS: MAGNESIUM OXIDE 400 MG TABLET PO SCH ×2 (09:09→17:35)
[2019-12-05] MEDS: PANTOPRAZOLE 40 MG TABLET.DR PO SCH (09:09)
[2019-12-05] MEDS: VALSARTAN 80 MG TABLET PO SCH (09:10)
[2019-12-05] MEDS: CYANOCOBALAMIN 500 MCG TABLET PO SCH (09:10)
[2019-12-05] MEDS: MEROPENEM 500 MG in IV NS 0.9% 50 ML IV SCH ×2 (09:32→21:42)
[2019-12-05 10:34] LABS: EOSINOPHILS % (MANUAL) 2 % (0-4); LYMPHOCYTES % (MANUAL) 11 % (16-48); METAMYELOCYTES % 1 % (0-0); MONOCYTES % (MANUAL) 5 % (0-11.0); NEUTROPHILS % (MANUAL) 81 (42-76)
[2019-12-05] MEDS ORDERED: K PHOS NEUTRAL 250 MG TABLET PO ONE (12:30)
[2019-12-05] MEDS: Magnesium 1GM/D5W 100ML PREMIX 100 ML IV SCH ×2 (12:31→14:04)
[2019-12-05] MEDS: INSULIN REGULAR, HUMAN 100 UNIT/ML 3 ML VIAL SQ PRN (12:31)
--- NOTE | 2019-12-05 13:15 | NUR ---
MS RN NOTES PATIENT SEEN AND EVALUATED BY KICK PRESS OPERATOR TONYA THEODORE, AWARE OF PATIENT NO URINE OUTPUT YET, BLADDER NON DISTENDED. NO NEW ORDERS MADE AT THIS TIME WILL CONTINUE MONITOR URINE OUTPUT.
[2019-12-05] MEDS ORDERED: SOD FERRIC GLUC 125 MG in IV NS 0.9% 100 ML IV ONE (13:30)
--- NOTE | 2019-12-05 15:15 | NUR ---
MS RN NOTES NOTIED CHAPARRITA BRADY THAT PATIENT HAS NO URINE OUTPUT YET AT THIS TIME WITH NEW ORDERS TO INSERT PENA CATHETER, ORDER READ BACK AND CLARIFIED WITH MD, NOTED AND CARRIED OUT.
--- NOTE | 2019-12-05 15:30 | NUR ---
MS RN NOTES INSERTED PENA CATHETER FR 16, STERILE TECHNIQUE PERFORMED, PATIENT TOLERATED WELL. WITH URINE OUTPUT OF 300 ML. PENA CATHETER DRAINING WELL.
[2019-12-05 16:00] VITALS: BP 137/87
--- NOTE | 2019-12-05 18:56 | NUR ---
MS RN NOTES PATIENT IN BED ALERT ORIENTED X 3. NO ACUTE DISTRESS NOTED. BREATHING UNLABORED. DENIED ANY PAIN.IV ACCESS PATENT AND INTACT. NO REDNESS , NO SWELLING NOTED. PENA CATHETER INTACT DRAINING WELL. NEEDS ATTENDED AND ANTICIPATED. KEPT CLEAN, DRY AND COMFORTABLE. SAFETY MEASURES IN PLACE. CALL LIGHT WITHIN REACH. WILL ENDORSE TO NIGHT NURSE FOR CONTINUITY OF CARE.
--- NOTE | 2019-12-05 19:50 | NUR ---
RN OPENING NOTES RECEIVED REPORT FROM MAURICIO RNEV. FOUND Pt ASLEEP IN BED, EASILY AWAKENED. Pt IS A/OX4, VERBAL, ABLE TO MAKE NEEDS KNOWN; CA[place] ISLANDER SPEAKING BUT UNDERSTANDS VERY LITTLE ICELANDIC. NO S/S OF ACUTE DISTRESS OR SOB NOTED AT THIS TIME. PENA CATHETER IN PLACE AND DRAINING WELL, SOME BLOOD NOTED IN URINE. PER MAURICIO RN, SAID IT WAS FROM THE TRAUMA OF THE PENA INSERTION. PENA WAS PLACED TODAY DUE TO URINARY RETENTION. IV ACCESS FOUND ON [facility]20G @[facility]. SAFETY MEASURES IN PLACED. BED LOW, LOCKED, HOB ELEVATED, SIDE RAILS UP, CALL LIGHT AND BEDSIDE TABLE WITHIN REACH. WILL CONTINUE TO MONITOR Pt's CONDITION AND SAFETY THROUGHOUT THE NIGHT.
[2019-12-05 20:00] VITALS: BP 128/77
[2019-12-05] MEDS: LATANOPROST EYE DROP 0.005% 2.5 ML BOTTLE EACHEYE SCH (21:41)
[2019-12-05] MEDS: FINASTERIDE (5 MG) 5 MG TABLET PO SCH (21:42)
[2019-12-05] MEDS: TERAZOSIN HCL 1 MG CAPSULE PO SCH (21:42)
[2019-12-05] MEDS: TAMSULOSIN 0.4 MG CAP.SR.24H PO SCH (21:42)
[2019-12-05] MEDS: MIRTAZAPINE 15 MG TABLET PO SCH (21:43)
--- NOTE | 2019-12-05 22:21 | NUR ---
RN NOTES ACCUCHECK BG 120. NO INSULIN COVERAGE NEEDED AT THIS TIME.
--- NOTE | 2019-12-05 22:30 | NUR ---
RN NOTES Pt SEEN BY UROLOGIST DR CHAPMAN AT BEDSIDE. PER MD SAID Pt CAN BE DISCHARGED WITH PENA CATHETER IF NEEDED.
[2019-12-06] MEDS: BLOOD SUGAR DIAGNOSTIC 1 EACH STRIP IN SCH ×3 (06:32→17:15)
[2019-12-06] MEDS: INSULIN REGULAR, HUMAN 100 UNIT/ML 3 ML VIAL SQ PRN ×3 (06:40→17:45)
--- NOTE | 2019-12-06 06:41 | NUR ---
RN NOTES NO SIGNIFICANT CHANGES IN Pt's CONDITION. Pt REMAINED STABLE THROUGHOUT THE NIGHT. NO S/S OF ACUTE DISTRESS OR SOB NOTED DURING THE SHIFT. ALL NEEDS MET AND ATTENDED TO. SAFETY MEASURES IN PLACE. Pt IS RESTING COMFORTABLY IN BED. WILL ENDORSE TO DAYSHIFT FOR Pt's ADELINE. Addendum: 12/06/19 at 0643 by SIVAN DAVID RN WILL ENDORSE TO DAYSCAFT RN FOR Pt's ADELINE.
--- NOTE | 2019-12-06 06:41 | NUR ---
RN NOTES AC ACCUCHECK BG 142. ADMINISTERED 2UN OF REGULAR INSULIN PER SLIDING SCALE.
[2019-12-06 06:42] LABS: BASOPHILS # (AUTO) 0.1 /CMM (0.0-0.2); BASOPHILS % (AUTO) 0.6 % (0.0-2.0); EOSINOPHILS % (AUTO) 2.7 % (0.0-6.0); HEMATOCRIT 24 % (39-51); HEMOGLOBIN 7.6 g/dL (13.5-17.5); LYMPHOCYTES # (AUTO) 1.3 /CMM (0.8-4.8); LYMPHOCYTES % (AUTO) 12.6 % (20.0-44.0); MEAN CORPUSCULAR HGB CONC 32 g/dl (31.0-36.0); MEAN CORPUSCULAR VOLUME 88 fL (80-96); MONOCYTES # (AUTO) 0.7 /CMM (0.1-1.30); MONOCYTES % (AUTO) 7.3 % (2.0-12.0); NEUTROPHILS # (AUTO) 7.9 /CMM (1.8-8.9); NEUTROPHILS % (AUTO) 76.8 % (43.0-81.0); PLATELET COUNT (AUTO) 335 /CMM (150-450); WHITE BLOOD COUNT (AUTO) 10.2 K/uL (4.3-11.0)
[2019-12-06 06:54] LABS: MAGNESIUM 1.9 mg/dL (1.8-2.4); PHOSPHORUS 2.7 mg/dL (2.5-4.9)
--- NOTE | 2019-12-06 07:15 | NUR ---
MS RN NOTES RECEIVED PATIENT IN BED, ASLEEP, AROUSABLE TO VERBAL AND TACTILE STIMULI. HOB ELEVATED. NO SOB. DENIES ANY C/O PAIN NOR DISCOMFORT AT THIS TIME. LEFT HAND # 20 INTACT AND PATENT. PENA CATHETER INTACT AND PATENT DRAINING YELLOW COLORED URINE VIA BEDSIDE. BED IN LOWEST POSITION, LOCKED. BED ALARM ON. CALL LIGHT WITHIN REACH. ABLE TO VERBALIZE NEEDS.
[2019-12-06 08:00] VITALS: BP 125/80
[2019-12-06] MEDS: VALSARTAN 80 MG TABLET PO SCH (09:24)
[2019-12-06] MEDS: PANTOPRAZOLE 40 MG TABLET.DR PO SCH (09:24)
[2019-12-06] MEDS: DULOXETINE HCL 20 MG CAPSULE.DR PO SCH (09:24)
[2019-12-06] MEDS: MEROPENEM 500 MG in IV NS 0.9% 50 ML IV SCH (09:24)
[2019-12-06] MEDS: CYANOCOBALAMIN 500 MCG TABLET PO SCH (09:24)
[2019-12-06] MEDS: MAGNESIUM OXIDE 400 MG TABLET PO SCH ×2 (09:24→17:13)
[2019-12-06] MEDS ORDERED: FINA5TAB3 PO (10:54)
[2019-12-06] MEDS ORDERED: MAGN400T26 PO (10:54)
[2019-12-06] MEDS ORDERED: TERA1CAP11 PO (10:54)
[2019-12-06] MEDS ORDERED: MIRT15TA PO (10:54)
[2019-12-06] MEDS ORDERED: VALS80TA2 PO (10:54)
[2019-12-06] MEDS ORDERED: ERTA1VIA4 IV (10:54)
[2019-12-06] MEDS ORDERED: Nitroglycerin SL (10:54)
[2019-12-06] MEDS ORDERED: Blood Sugar Diagnostic IN (10:54)
[2019-12-06] MEDS ORDERED: PANT40TA2 PO (10:54)
[2019-12-06] MEDS ORDERED: DULO20CA PO (10:54)
[2019-12-06] MEDS ORDERED: Colchicine PO (10:54)
[2019-12-06] MEDS ORDERED: ACET325T53 PO (10:54)
[2019-12-06] MEDS ORDERED: LATA2.5D2 EACHEYE (10:54)
[2019-12-06] MEDS ORDERED: TAMS-12 PO (10:54)
[2019-12-06] MEDS ORDERED: INSU100V28 SQ (10:54)
[2019-12-06] MEDS ORDERED: CYAN500T65 PO (10:54)
--- NOTE | 2019-12-06 13:29 | NUR ---
MS RN NOTES PICC LINE INSERTION DONE TO RIGHT UPPER ARM DOUBLE LUMEN, 44 CM, PATIENT RADHA PROCEDURE WELL.
[2019-12-06] MEDS ORDERED: SOD FERRIC GLUC 125 MG in IV NS 0.9% 100 ML IV SCH (14:00)
--- NOTE | 2019-12-06 19:23 | NUR ---
MS RN NOTES ALERT AND ORIENTED X4. HOB ELEVATED. NO S/S OF RESPIRATORY DISTRESS. DENIES ANY C/O PAIN NOR DISCOMFORT AT THIS TIME. RIGHT UPPER ARM PICC LINE INTACT AND PATENT. LEFT HAND IV ACCESS REMOVED WITH CATHETER TIP INTACT WITH GAUZE DRESSING IN PLACE. PENA CATHETER INTACT AND PATENT DRAINING YELLOW COLORED URINE VIA BEDSIDE. BED IN LOWEST POSITION, LOCKED. BED ALARM ON. CALL LIGHT WITHIN REACH. REPORT GIVEN TO COURT HEREDIA AT [facility] ALONG WITH DISCHARGE INSTRUCTIONS. AWAITING FOR AMBULANCE. PATIENT HAS NO BELONGINGS. RESTING COMFORTABLY IN BED.
[2019-12-06 19:40] VITALS: BP 139/76
[2019-12-06 20:00] VITALS: BP 139/76
--- NOTE | 2019-12-06 21:00 | NUR ---
Ambulance here to p/u patient to take him to [facility]. Pt alert and orientated. belonging in a bag with the patient
== END 2019-12-06 21:00 | DRG 853 ==
LOC: ER 21:27 → TELE1 11-28 00:42 → MEDSG1 11-29 08:05 → MEDSG2 12-03 07:44
PROVIDERS: ADMIT Registered Nurse; ATTEND Nurse Practitioner Acute Care
PROC: 0VB08ZZ Excision of Prostate, Via Natural or Artificial Opening Endoscopic (ICD-10-PCS; principal; 2019-11-30)
PROC: 30233N1 Transfusion of Nonautologous Red Blood Cells into Peripheral Vein, Percutaneous Approach (ICD-10-PCS; 2019-11-30)
PROC: 05HY33Z Insertion of Infusion Device into Upper Vein, Percutaneous Approach (ICD-10-PCS; 2019-12-03)
PROC: 02HV33Z Insertion of Infusion Device into Superior Vena Cava, Percutaneous Approach (ICD-10-PCS; 2019-12-06)
PROC: B548ZZA Ultrasonography of Superior Vena Cava, Guidance (ICD-10-PCS; 2019-12-06)
DX: A41.9 Sepsis, unspecified organism (principal); E43 Unspecified severe protein-calorie malnutrition; N17.0 Acute kidney failure with tubular necrosis; J18.9 Pneumonia, unspecified organism; E87.1 Hypo-osmolality and hyponatremia; N39.0 Urinary tract infection, site not specified; I13.0 Hypertensive heart and chronic kidney disease with heart failure and stage 1 through stage 4 chronic kidney disease, or unspecified chronic kidney disease; N41.2 Abscess of prostate; Z16.12 Extended spectrum beta lactamase (ESBL) resistance; I48.20 Chronic atrial fibrillation, unspecified; N18.9 Chronic kidney disease, unspecified; M81.0 Age-related osteoporosis without current pathological fracture; K21.9 Gastro-esophageal reflux disease without esophagitis; E66.01 Morbid (severe) obesity due to excess calories; E11.65 Type 2 diabetes mellitus with hyperglycemia; E11.22 Type 2 diabetes mellitus with diabetic chronic kidney disease; B96.20 Unspecified Escherichia coli [E. coli] as the cause of diseases classified elsewhere; Z86.73 Personal history of transient ischemic attack (TIA), and cerebral infarction without residual deficits; Z90.79 Acquired absence of other genital organ(s); Z68.35 Body mass index [BMI] 35.0-35.9, adult; Z87.440 Personal history of urinary (tract) infections; Z95.0 Presence of cardiac pacemaker; M19.90 Unspecified osteoarthritis, unspecified site; E88.09 Other disorders of plasma-protein metabolism, not elsewhere classified; D64.9 Anemia, unspecified; J40 Bronchitis, not specified as acute or chronic; E86.1 Hypovolemia; Z79.84 Long term (current) use of oral hypoglycemic drugs; D47.3 Essential (hemorrhagic) thrombocythemia; D50.9 Iron deficiency anemia, unspecified; E83.42 Hypomagnesemia; I50.9 Heart failure, unspecified; E11.649 Type 2 diabetes mellitus with hypoglycemia without coma
CPT/HCPCS: 36410; 36415; 36569; 71045-TC; 74178; 80048-TC; 80053-TC; 80076-TC; 80202-TC; 81000-TC; 82570-TC; 82728-TC; 82784; 82962-TC; 83540-TC; 83605-TC; 83615-TC; 83735-TC; 83935-TC; 84100-TC; 84153-TC; 84154-TC; 84155; 84155-TC; 84165; 84300-TC; 84439-TC; 84443-TC; 84484-TC; 85025-TC; 85045-TC; 85378-TC; 85652-TC; 85730-TC; 86140-TC; 86334; 86850-TC; 86921-TC; 87040-TC; 87081-TC; 87086-TC; 87186-TC; 88108-TC; 88305-TC; 97530-TC; A4216; A4217; A4349; C1751; C9113; G0378; J1815; J2185; J2370; J2405; J2543; J2704; J2916; J3010; J3370; J3475; J3490; J7030; J7042; J7050; J7060; J7070; P9016-BL; Q9967; U0003-CS

== ENCOUNTER 2019-12-09 23:57 | Inpatient (IN) | payer OTHER ==
[~2019-12-09] VITALS: Ht 162.6 cm; Wt 67.1 kg
[~2019-12-09 23:57] MED LIST changes: -ACET-868 PO; +ACET325T53 PO; +Blood Sugar Diagnostic IN; -CARV25TA2 PO; -COLC0.6C3 PO; -CYAN100096 PO; +CYAN500T65 PO; +Colchicine PO; -DABI110C PO; +DULO20CA PO; -DULO20CA19 PO; +ERTA1VIA4 IV; +FINA5TAB3 PO; +INSU100V28 SQ; -MINE105O TP; +MIRT15TA PO; -MIRT15TA7 PO; -NITR0.4T48 SL; +Nitroglycerin SL; +PANT40TA2 PO; -POTA10TA11 PO; +TAMS-12 PO; +TERA1CAP11 PO; -TERA2CAP4 PO; -TERB30CR8 TP; -TORS20TA3 PO; +VALS80TA2 PO
[2019-12-10] VITALS (77 sets, daily range): BP systolic 58–187; BP diastolic 25–102
--- NOTE | 2019-12-10 00:04 | NUR ---
PT BIB [facility] WITH A C/O SOB. RHONCHI NOTED BILATERALLY. O2 SAT DESATURATED TO 78% IN THE SNF. W/ O2 PT WENT TO 92%, PER SNF. PER RESCUE, PT IS NOW ON 2L O2 SATURATING AT 90%. PT TRIAGED AND TAKEN TO ROOM #5
--- NOTE | 2019-12-10 00:08 | NUR ---
CALLED [facility] AND SPOKE WITH COURT AL REQUESTING FOR POLST. PER SERVANDO, NO POLST ON RECORD. PT FULL CODE. AWARE
[2019-12-10] MEDS ORDERED: PROPOFOL 100 ML ONE (00:13)
--- NOTE | 2019-12-10 00:23 | NUR ---
TIME OUT BP: 109/77, HR 62, RESP 20, O2 SAT 93%
--- NOTE | 2019-12-10 00:25 | NUR ---
ETOMIDATE 20MG IVP VIA PURPLE PORT ON PICC SUCC 150MG IVP PURPLE PORT ON PICC LINE
--- NOTE | 2019-12-10 00:26 | NUR ---
INTUBATED. 23@ LIP 7.5 ETT
--- NOTE | 2019-12-10 00:27 | NUR ---
VENT SETTINGS ARE FOLLOWS: RT 20, TV 550, FIO2 100%, PEEP 5
--- NOTE | 2019-12-10 00:33 | NUR ---
URINE COLLECTED AND SENT TO LAB
--- NOTE | 2019-12-10 00:34 | NUR ---
BLOOD COLLECTED AND SENT TO LAB
[2019-12-10] MEDS ORDERED: AMIODARONE 150 MG/3 ML VIAL IV ONE ×4 (00:41→01:00)
--- NOTE | 2019-12-10 00:44 | NUR ---
RT @0026 pt was intubated due to desaturation. pt was intubated with a 7.5 ett @23 cm at the lip. placed on vent with settings: AC 20 550 100% +5. bilateral chest rise. lung sounds coarse on expiration. no secretions suctioned via ett. sputum sample to be collected. abg in 1 hr. will continue to monitor.
[2019-12-10] MEDS ORDERED: LEVOFLOXACIN 750 MG /D5W 150ML 150 ML IV ONE ×2 (01:00→01:32)
[2019-12-10] MEDS ORDERED: CEFTRIAXONE 1GM BAG (ER ONLY) 50 ML IV ONE ×2 (01:00→01:19)
[2019-12-10] MEDS ORDERED: ETOMIDATE 2 MG/ML VIAL IV ONE (01:00)
[2019-12-10] MEDS ORDERED: PIPERACILLIN /TAZOBACTAM 3.375 G in IV D5W 50 ML IV ONE (01:00)
[2019-12-10] MEDS ORDERED: PROPOFOL 100 ML IV PRN (01:00)
[2019-12-10] MEDS ORDERED: ALBUTEROL FS 2.5 MG/3 ML VIAL.NEB NEB ONE (01:00)
[2019-12-10] MEDS ORDERED: SUCCINYLCHOLINE CHLORIDE 20 MG/ML VIAL IV ONE (01:00)
--- NOTE | 2019-12-10 01:05 | NUR ---
IV STARTED IN LT UPPER CHEST. PACEMAKER NOTED ON SHADY.
--- NOTE | 2019-12-10 01:05 | NUR ---
Note undone in EDM - 12/10/19 at 0222 by [email or web address] IV STARTED IN RT UPPER CHEST. PACEMAKER NOTED ON RU.
[2019-12-10] MEDS ORDERED: PIPERACILLIN /TAZOBACTAM 3.375 G VIAL IV ONE (01:19)
--- NOTE | 2019-12-10 01:22 | NUR ---
20G IV STARTED IN RUC.
[2019-12-10 01:23] LABS: BASOPHILS % (AUTO) 0.2 % (0.0-2.0); EOSINOPHILS % (AUTO) 0.7 % (0.0-6.0); HEMATOCRIT 28 % (39-51); HEMOGLOBIN 8.6 g/dL (13.5-17.5); LYMPHOCYTES # (AUTO) 0.6 /CMM (0.8-4.8); LYMPHOCYTES % (AUTO) 2.3 % (20.0-44.0); MEAN CORPUSCULAR HGB CONC 30 g/dl (31.0-36.0); MEAN CORPUSCULAR VOLUME 90 fL (80-96); MONOCYTES # (AUTO) 0.8 /CMM (0.1-1.30); MONOCYTES % (AUTO) 3.2 % (2.0-12.0); NEUTROPHILS # (AUTO) 23.5 /CMM (1.8-8.9); NEUTROPHILS % (AUTO) 93.6 % (43.0-81.0); PLATELET COUNT (AUTO) 367 /CMM (150-450); RED BLOOD CELL COUNT(AUTO) 3.15 MIL/uL (4.5-6.0); WHITE BLOOD COUNT (AUTO) 25.1 K/uL (4.3-11.0)
[2019-12-10] MEDS ORDERED: LORAZEPAM INJ 2 MG/ML VIAL ONE (01:23)
--- NOTE | 2019-12-10 01:27 | NUR ---
ORAL SUCTIONING DONE WITH GERMAN.
--- NOTE | 2019-12-10 01:28 | NUR ---
AMIODARONE DRIP STOPPED PER DR. FORBES.
[2019-12-10] MEDS ORDERED: IV NS 0.9% 500 ML BAG IV ONE (01:30)
[2019-12-10] MEDS ORDERED: LORAZEPAM INJ 2 MG/ML VIAL IV ONE (01:30)
--- NOTE | 2019-12-10 01:36 | NUR ---
VENT SETTINGS: RATE : 20 TV: 550 O2%: 100
--- NOTE | 2019-12-10 01:36 | NUR ---
COVID, INFLUENZA, AND RSV SWAB COLLECTED AND SENT TO LAB
--- NOTE | 2019-12-10 01:36 | NUR ---
VENT SETTINGS TO INCLUDE PEEP 5
--- NOTE | 2019-12-10 01:37 | NUR ---
ABG DONE BY RT.
--- NOTE | 2019-12-10 01:38 | NUR ---
LEFT SIDE OF NECK HAS BULGING AREA WITH SLIGHT RASH. NOT NOTED EARLIER. MD NOTIFIED AND NEW ORDERS GIVEN.
--- NOTE | 2019-12-10 01:38 | NUR ---
DR FORBES IS AT THE BEDSIDE.
[2019-12-10] MEDS ORDERED: diphenhydrAMINE HCL 50 MG/ML VIAL ONE (01:40)
[2019-12-10 01:51] LABS: CALCIUM, SERUM 8.3 mg/dL (8.5-10.1); CREATININE 1.2 mg/dL (0.6-1.3); POTASSIUM 4.3 mmol/L (3.5-5.1)
--- NOTE | 2019-12-10 01:56 | NUR ---
REC'D CALL FROM LAB, GLUCOSE 50. MD AWARE. PER VERBAL MD ORDER, WILL ADMINISTER D50 IV X1 NOW
[2019-12-10] MEDS ORDERED: DEXTROSE 50%-WATER 50 ML DISP.SYRIN ONE (01:59)
[2019-12-10] MEDS ORDERED: diphenhydrAMINE HCL 50 MG/ML VIAL IV ONE (02:00)
[2019-12-10 02:04] LABS: BILIRUBIN,DIRECT 0.1 mg/dL (0.0-0.2); BILIRUBIN,TOTAL 0.2 mg/dL (0.2-1.0); TOTAL PROTEIN, SERUM 6.1 g/dL (6.4-8.2)
--- NOTE | 2019-12-10 02:10 | NUR ---
PROPOFOL INCREASED TO 15MCG/MIN, 9.57ML/HR.
[2019-12-10 02:15] LABS: APPEARANCE,URINE TURBID (CLEAR); COLOR,URINE YELLOW (YELLOW)
[2019-12-10 02:16] LABS: BILIRUBIN,URINE NEGATIVE (NEGATIVE); LEUKOCYTE ESTERASE ,URINE 2+ (NEGATIVE); NITRITE, URINE NEGATIVE (NEGATIVE); UGLUCOSE NEGATIVE (NEGATIVE); UROBILINOGEN,URINE 0.2 EU/dL (0.2)
[2019-12-10 02:17] LABS: BLOOD, URINE 3+ Ery/uL (NEGATIVE); KETONES,URINE NEGATIVE (NEGATIVE); PROTEIN,URINE 2+ mg/dl (NEGATIVE)
--- NOTE | 2019-12-10 02:26 | NUR ---
DR FORBES TOLD BY CASIE BOYD THAT THE PT IS DNR/DNI. PT HAS A POLST. POLST IS NOT WITH THE PT'S PAPERWORK AND FACILITY CONFIRMED NO POLST WHEN PT ARRIVED.
--- NOTE | 2019-12-10 02:26 | NUR ---
CALLED [facility]
[2019-12-10] MEDS ORDERED: DEXTROSE 50%-WATER 50 ML DISP.SYRIN IVP ONE (02:30)
[2019-12-10 02:36] LABS: C-REACTIVE PROTEIN 3.7 mg/dL (0.0-0.9)
[2019-12-10 02:39] LABS: BACTERIA,URINE Few /HPF (None Seen); RBC,URINE 21-50 /HPF (0-2); SQUAMOUS EPITHELIAL CELL,UR Rare /HPF (None Seen); WBC,URINE TOO NUMEROUS TO COUN /HPF (0-3); YEAST,URINE Moderate /HPF (None Seen)
[2019-12-10 02:52] LABS: D-DIMER 9.24 mg/L(FEU (0.17-0.50)
[2019-12-10] MEDS ORDERED: NOREPINEPHRINE 4 MG/4 ML AMPUL IV ONE (02:53)
--- NOTE | 2019-12-10 02:53 | NUR ---
PT'S BP DROPPED TO 55/27. PROPOFOL WAS STOPPED AND NOTIFIED. PT IS ON THE MONITOR AND VENT. WILL CONTINUE TO MONITOR THE PT.
--- NOTE | 2019-12-10 02:58 | NUR ---
ER DOC ON PHONE WITH HOSPITALIST
--- NOTE | 2019-12-10 03:02 | NUR ---
LEVOFED DRIP STARTING.
--- NOTE | 2019-12-10 03:08 | NUR ---
PT TO GO TO ICU 256.
--- NOTE | 2019-12-10 03:08 | NUR ---
REPORT GIVEN TO COURT REYNA
[2019-12-10] MEDS ORDERED: NOREPINEPHRINE 8 MG in IV NS 0.9% 250 ML IV PRN ×2 (03:30→04:00)
[2019-12-10] MEDS ORDERED: IV NS 0.9% 250 ML IV PRN (03:30)
[2019-12-10] MEDS ORDERED: NOREPINEPHRINE 8 MG in IV NS 0.9% 250 ML IV ONE (03:30)
[2019-12-10] MEDS ORDERED: ACETAMINOPHEN 650 MG/SUPP.RECT RC PRN (03:30)
[2019-12-10] MEDS ORDERED: VANCOMYCIN 1 GM in IV NS 0.9% 250 ML IV SCH (03:30)
[2019-12-10] MEDS ORDERED: ONDANSETRON HCL/PF 4 MG/2 ML VIAL IVP PRN (03:30)
--- NOTE | 2019-12-10 03:50 | NUR ---
LEVOQUIN STARTED IN 20G IV SHADY.
--- NOTE | 2019-12-10 03:50 | NUR ---
RT transferred pt to floor without complications
--- NOTE | 2019-12-10 03:56 | NUR ---
PT TRANSPORTED TO ICU PER PROTOCOL.
[2019-12-10] MEDS ORDERED: VANCOMYCIN 1.5 GM in IV NS 0.9% 500 ML IV ONE (04:00)
[2019-12-10] MEDS ORDERED: MEROPENEM 1 G in IV NS 0.9% 100 ML IV ONE (04:00)
[2019-12-10] MEDS ORDERED: MEROPENEM 1 G VIAL IV ONE (04:33)
[2019-12-10] MEDS ORDERED: VANCOMYCIN 1 GM VIAL ONE (04:34)
--- NOTE | 2019-12-10 04:41 | NUR ---
MANAGER OF INVESTIGATIONS NOTES - CODE STATUS COPY OF PATIENT'S POLST LOCATED IN CHART. PER POLST, PATIENT IS A DNR/DNI. DR QUINN IN AGREEMENT WITH DNR/DNI CODE STATUS. WITH NEW ORDER FOR CODE STATUS: DNR/DNI.
[2019-12-10] MEDS: PROPOFOL 100 ML IV PRN ×2 (04:57→07:46)
[2019-12-10] MEDS ORDERED: MEROPENEM 1 G in IV NS 0.9% 100 ML IV SCH (05:00)
--- NOTE | 2019-12-10 06:00 | NUR ---
0400 Received patient from ED via ACLS protocol intubated connected to mechanical vent with prescribed settings.Dx: Respiratory failure tested for Covid 19.Droplet/Contact precaution implemented. W/ongoing Diprivan gtt as sedation and Levophed gtt for BP support.Afib 120's.OGT clamped.Placement verified.FC to gravity tea colored with sediments.AM care done.Due medications administered. Turned and repositioned.Will endorse to day shift for jax.
[2019-12-10] MEDS: NOREPINEPHRINE 8 MG in IV NS 0.9% 242 ML IV PRN ×2 (07:55→12:38)
--- NOTE | 2019-12-10 08:00 | NUR ---
ICU/RN: INITIAL NOTES,AM RECEIVED REPORT FROM NIGHT NURSE. PT INTUBATED ETT 7.5, 23 AT THE LIP. ON VENT SETTINGS ORDERED BY MD, NO ACUTE DISTRESS NOTED. A.FIB ON TELE. PENA CATH IN PLACE, DRAINING CLOUDY YELLOW URINE. RIGHT UPPER ARM PICC LINE PATENT AND INTACT, LEVO INFUSING FOR BP SUPPORT. 10 MCG/KG/MIN DIPRIVAN INFUSING. ALL NEEDS WILL BE ATTENDED TO, SAFETY MEASURES TAKEN, BED IN LOW POSITION, SIDE RAILS UP, CALL LIGHT WITHIN REACH. WILL CONTINUE CARE.
[2019-12-10] MEDS: FUROSEMIDE 40 MG/4 ML VIAL IV SCH ×2 (08:32→11:26)
[2019-12-10] MEDS: PANTOPRAZOLE 40 MG VIAL IV SCH (08:32)
[2019-12-10] MEDS: HYDROCORTISONE SOD SUCCINATE 100 MG/2 ML VIAL IV SCH ×3 (08:32→16:51)
[2019-12-10] MEDS ORDERED: FEE PK DOSING 1 MIN EA MC ONE (08:32)
[2019-12-10 08:34] LABS: MetHb 0.4 % (0.0-1.5)
[2019-12-10] MEDS: ENOXAPARIN SODIUM 40 MG/0.4 ML DISP.SYRIN SQ SCH (08:36)
[2019-12-10] MEDS ORDERED: ETOMIDATE 2 MG/ML VIAL ONE (09:07)
[2019-12-10] MEDS ORDERED: SUCCINYLCHOLINE CHLORIDE 20 MG/ML VIAL ONE (09:07)
--- NOTE | 2019-12-10 09:25 | NUR ---
WOUND CARE CONSULT: REVIEWED CHART, NURSING DOCUMENTATION AND PHOTOS FROM ADMISSION WHICH SHOW REDNESS, RASH AND INCONTINENCE ASSOCIATED SKIN DAMAGE TO GLUTEAL CREASE, BUTTOCKS AND GROIN/PERINEAL AREAS, PRESENT ON ADMISSION. RECOMMENDATIONS MADE FOR SKIN PROTECTION. DISCUSSED WITH NURSING STAFF. WILL SEE PRN. BOYD IN AGREEMENT WITH PLAN OF CARE.
[2019-12-10] MEDS ORDERED: Z GUARD REMEDY 2 OZ OINT TP PRN (09:30)
[2019-12-10] MEDS: Z GUARD REMEDY 2 OZ OINT TP SCH (10:52)
[2019-12-10] MEDS ORDERED: DC PROPOFOL WHEN EXTUBATED XX PRN ×2 (14:30→15:30)
[2019-12-10 14:48] LABS: ABG BASE EXCESS -1.2 mmol/L; ABG OXYGEN SATURATION 97.4 % (92.0-98.5); ABG PCO2 44.1 mmHg (35.0-45.0); ABG PH 7.358 (7.350-7.450); ABG PO2 113.1 mmHg (75.0-100.0); AaDO2 555.8 mmHg; COHb 0.2 % (0.5-1.5); O2Hb 96.8 % (94.0-97.0); SITE, ABG Left Radial; VENT MODE, BG AC 20 550 100% +5
[2019-12-10 14:48] LABS: ABG OXYGEN SATURATION 95.7 % (92.0-98.5); ABG PCO2 33.1 mmHg (35.0-45.0); ABG PH 7.467 (7.350-7.450); ABG PO2 74.7 mmHg (75.0-100.0); AaDO2 316.7 mmHg; COHb 0.1 % (0.5-1.5); MetHb 0.1 % (0.0-1.5); O2Hb 95.5 % (94.0-97.0); SITE, ABG Right Radial; VENT MODE, BG AC 20 550 60%+5
[2019-12-10] MEDS ORDERED: NOREPINEPHRINE 16 MG in IV NS 0.9% 242 ML IV PRN (15:00)
[2019-12-10] MEDS ORDERED: NOREPINEPHRINE 32 MG in IV NS 0.9% 218 ML IV PRN (15:00)
--- NOTE | 2019-12-10 15:00 | NUR ---
ICU/RN: AFTER LONG DISCUSSION WITH OF PT AND PRIMARY YUMIKO, DECIDED TO FOLLOW HUSBANDS WISHES OF DNR/DNI AND TERMINALLY EXTUBATE THE PT. IT IS OK TO CONTINUE LIFE SUSTAINING MEDICATIONS SUCH VASOPRESSORS HOWEVER NO CPR OR INTUBATION. MD ORDERS RECEIVED WILL FOLLOW THROUGH.
--- NOTE | 2019-12-10 15:35 | NUR ---
ICU/RN: PT WEANED OFF DIPRIVAN FOR TERMINAL EXTUBATION. WILL CONTINUE TO MONITOR AND ASSESS.
--- NOTE | 2019-12-10 16:20 | NUR ---
ICU/RN: PT ALERT, AWAKE. OPENS EYES, FOLLOWS COMMANDS. PT TERMINALLY EXTUBATED AND PLACED ON NASAL CANULA, NO ACUTE DISTRESS NOTED. WILL CONTINUE TO MONITOR AND ASSESS
[2019-12-10] MEDS: CLOTRIMAZOLE 1% 15 GM TUBE TP SCH (16:53)
[2019-12-10] MEDS: MEROPENEM 1 G in IV NS 0.9% 100 ML IV SCH (16:53)
--- NOTE | 2019-12-10 18:48 | NUR ---
ICU/RN: ENDING NOTES,AM REPORT WILL BE ENDORSED TO NIGHT NURSE FOR ADELINE. PT EXTUBATED, ON NASAL CANULA, NO DISTRESS. ALERT, AWAKE FOLLOWING COMMANDS. ALL NEEDS ATTENDED TO, SAFETY MEASURES TAKEN, BED IN LOW POSITION, SIDE RAILS UP,CALL LIGHT WITHIN REACH. WILL CONTINUE CARE.
--- NOTE | 2019-12-10 19:30 | NUR ---
SKEIN SPOOLER INITIAL SHIFT NOTES RECEIVED PATIENT IN BED, AWAKE BUT DROWSY, A/O X 2-3, ABLE TO VERBALIZE NEEDS, KOREAN SPEAKING. PATIENT S/P EXTUBATION @ 1620, NOW ON NASAL CANNULA, CURRENTLY @ 8LPM, TOLERATING WELL, NO SIGNS AND SYMPTOMS OF RESPIRATORY DISTRESS. OGT WAS REMOVED WITH ET TUBE, WILL PERFORM BEDSIDE SWALLOW EVALUATION. PATIENT NOTED WITH BM, SOFT, BROWN/GREEN. WILL GIVE PARTIAL BED BATH AND CHANGE SOILED SHEETS. VELEVT PICC PATENT AND INTACT, PORTS FLUSHED WITH NS. RIGHT AND LEFT UPPER CHEST IVs PATENT AND INTACT, FLUSHED WITH NS. IV ACCESSES FREE FROM ANY SIGNS/SYMPTOMS OF INFILTRATION OR PHLEBITIS. LEVOPHED DRIP RUNNING @ 0.05 MCG/KG/MIN VIA VELVET PICC, WILL TITRATE BP ALLOWS. PENA CATHETER PATENT AND INTACT, DRAINING CLOUDY YELLOW URINE VIA GRAVITY. ISOLATION PRECAUTIONS OBSERVED-R/O COVID-19. WILL MONITOR CLOSELY
--- NOTE | 2019-12-10 20:00 | NUR ---
BEAD FILLER NOTES BEDSIDE NURSING SWALLOW EVALUATION PERFORMED. PATIENT'S HOB RAISED TO SITTING POSITION, INSTRUCTED TO TAKE SMALL SIPS. PATIENT PASSED SWALLOW EVALUATION, ABLE TO SWALLOW SMALL AMOUNTS OF FLUIDS, NO COUGHING OR POCKETING NOTED. WILL MONITOR PATIENT CLOSELY
[2019-12-10] MEDS ORDERED: NOREPINEPHRINE 8 MG in IV NS 0.9% 242 ML IV PRN (20:30)
--- NOTE | 2019-12-10 21:00 | NUR ---
ASIC DESIGN ENGINEER NOTES Preliminary result for blood culture, gram + cocci in chains and pairs. Patient on multiple IV antibiotics. Will continue to monitor.
--- NOTE | 2019-12-10 21:15 | NUR ---
METERS SUPERINTENDENT NOTES - LEVOPHED DRIP BP WNL, LEVOPHED DRIP TITRATED OFF. WILL MONITOR CLOSELY
[2019-12-10] MEDS ORDERED: VANCOMYCIN 1 GM in IV D5W 250 ML IV SCH (23:00)
[2019-12-11] VITALS (20 sets, daily range): BP systolic 97–170; BP diastolic 56–81
[2019-12-11 04:22] LABS: HEMATOCRIT 23 % (39-51); HEMOGLOBIN 7.2 g/dL (13.5-17.5); LYMPHOCYTES # (AUTO) 0.8 /CMM (0.8-4.8); LYMPHOCYTES % (AUTO) 3.4 % (20.0-44.0); MEAN CORPUSCULAR HGB CONC 31 g/dl (31.0-36.0); MEAN CORPUSCULAR VOLUME 90 fL (80-96); MONOCYTES # (AUTO) 0.9 /CMM (0.1-1.30); MONOCYTES % (AUTO) 3.7 % (2.0-12.0); NEUTROPHILS # (AUTO) 21.1 /CMM (1.8-8.9); NEUTROPHILS % (AUTO) 92.9 % (43.0-81.0); PLATELET COUNT (AUTO) 267 /CMM (150-450); RED BLOOD CELL COUNT(AUTO) 2.59 MIL/uL (4.5-6.0); WHITE BLOOD COUNT (AUTO) 22.7 K/uL (4.3-11.0)
[2019-12-11 04:37] LABS: THYROID STIMULATING HORMONE 2.167 uIU/mL (0.358-3.74)
[2019-12-11 04:47] LABS: ALANINE AMINOTRANSFERASE 9 U/L (12-78); ALKALINE PHOSPHATASE 66 U/L (46-116); ASPARTATE AMINOTRANSFERASE 12 U/L (15-37); B-TYPE NATRIURETIC PEPTIDE 6689 PG/ML (0-125); BILIRUBIN,TOTAL 0.2 mg/dL (0.2-1.0); CALCIUM, SERUM 7.5 mg/dL (8.5-10.1); CARBON DIOXIDE 29 mmol/L (21-32); CHLORIDE 105 mmol/L (98-107); CREATININE 1.4 mg/dL (0.6-1.3); GLUCOSE 196 mg/dL (74-106); MAGNESIUM 1.5 mg/dL (1.8-2.4); PHOSPHORUS 3.5 mg/dL (2.5-4.9); POTASSIUM 4.2 mmol/L (3.5-5.1); SODIUM SERUM 137 mmol/L (136-145); TOTAL PROTEIN, SERUM 4.9 g/dL (6.4-8.2); UREA NITROGEN, BLOOD 16 mg/dL (7-18)
[2019-12-11 04:50] LABS: ALBUMIN 1.4 g/dL (3.4-5.0)
[2019-12-11] MEDS: MEROPENEM 1 G in IV NS 0.9% 100 ML IV SCH ×2 (05:41→17:00)
--- NOTE | 2019-12-11 06:30 | NUR ---
CNA HHA CLOSING NOTES PATIENT NOTED WITH 3 BOWEL MOVEMENTS THROUGHOUT SHIFT, FORMED, SOFT/MUCOID, NO DIARRHEA NOTED. PATIENT ON MULTIPLE IV ANTIBIOTICS. O2 TITRATED TO 6L VIA NC, PATIENT TOLERATING WELL, FREE FROM ANY SIGNS AND SYMPTOMS OF RESPIRATORY DISTRESS. WILL ENDORSE THE PATIENT TO THE AM SHIFT NURSE FOR ADELINE
--- NOTE | 2019-12-11 07:30 | NUR ---
RN NOTES RECEIVED PATIENT ASLEEP BUT IS EASILY AWAKEN BY VERBAL STIMULI, ABLE TO MAKE NEEDS AND RESPOND BUT EXPRESSES WELL IN KOREAN. ON OXYGEN SUPPORT VIA NASAL CANNULA WITH OXYGEN AT 2LPM. NO SHORTNESS OF BREATH NOTED. SATING 100% AT THIS TIME. BILATERAL UPPER EXTREMITIES ELEVATED LEFT GREATER THAN THE LEFT. PENA CATHETER IN PLACE, DRAINING TO CLEAR YELLOW URINE. SAFETY MEASURES IN PLACE. SRX2 UP. CALL LIGHT WITHIN REACH. ENCOURAGE TO CALL FOR HELP AND ASSISTANCE WHEN NEEDED. WILL CONTINUE TO MONITOR AND KEEP PATIENT ON ISOLATION.
[2019-12-11] MEDS: Magnesium 1GM/D5W 100ML PREMIX 100 ML IV SCH ×2 (09:00→09:20)
[2019-12-11 09:03] LABS: IRON, SERUM 12 ug/dl (50-175); TOTAL IRON BINDING CAPACITY 127 ug/dl (250-450)
[2019-12-11] MEDS: PANTOPRAZOLE 40 MG VIAL IV SCH (09:19)
[2019-12-11] MEDS: FUROSEMIDE 100 MG/10 ML VIAL IV SCH ×3 (09:19→17:00)
[2019-12-11] MEDS: HYDROCORTISONE SOD SUCCINATE 100 MG/2 ML VIAL IV SCH ×3 (09:20→17:00)
[2019-12-11] MEDS: Z GUARD REMEDY 2 OZ OINT TP SCH (09:20)
[2019-12-11] MEDS: CLOTRIMAZOLE 1% 15 GM TUBE TP SCH ×2 (09:20→17:03)
[2019-12-11] MEDS: ENOXAPARIN SODIUM 40 MG/0.4 ML DISP.SYRIN SQ SCH (09:21)
[2019-12-11] MEDS ORDERED: Magnesium 1GM/D5W 100ML PREMIX PIGGYBACK IV ONE (11:00)
--- NOTE | 2019-12-11 12:00 | NUR ---
RN NOTES Nito WESLEY NP INFORMED ABOUT PATIENT WITH MULTIPLE BM SINCE THE BEGINNING OF THE SHIFT. NNO AT THIS TIME
[2019-12-11] MEDS ORDERED: DEXTROSE 50%-WATER 50 ML DISP.SYRIN IV PRN (13:00)
--- NOTE | 2019-12-11 15:50 | NUR ---
RN NOTES PATIENT TRANSFERRED TO ROOM 109. REPORTS GIVEN TO COURT MORROW. HANDS OFF
--- NOTE | 2019-12-11 16:00 | NUR ---
PATIENT WAS TRANSFERRED IN STABLE CONDITION ACCOMPANIED BY 2 RNs. WITH OXYGEN NC 6L TOLERATING WELL. NO SIGNS OF DISTRESS. KEPT COMFORTABLE. PATIENT IS MS. VITAL SIGNS TAKEN WITHIN NORMAL LIMITS.
[2019-12-11] MEDS: BLOOD SUGAR DIAGNOSTIC 1 EACH STRIP IN SCH ×2 (17:37→22:30)
[2019-12-11] MEDS: INSULIN REGULAR, HUMAN 100 UNIT/ML 3 ML VIAL SQ PRN ×2 (17:57→22:33)
--- NOTE | 2019-12-11 18:47 | NUR ---
RN CLOSING NOTE Patient in bed awake no signs of distress. On NC 6L tolerating well. Patient is AO x2 chinese speaking. Boggs catheter in place draining cloudy yellow urine. Has VELVET PICC line, RU Chest #20 and BRIJESH Chest #20. Administered Regular insulin as ordered and cont on antibiotics no signs of adverse reaction to medication. Safety measures reinforced. Call light within reach. Bed locked and on lowest position. Will endorse to security shift supervisor nurse.
--- NOTE | 2019-12-11 19:30 | NUR ---
RN OPENING NOTES: RECEIVED PT A/OX2. PATIENT IN BED RESTING COMFORTABLY IN SUPINE POSITION. PATIENT IN NO S/SX OF ACUTE DISTRESS AT THIS TIME. NO SOB NOTED. PATIENT'S BREATHING IS EVEN AND UNLABORED. PATIENT IS ON 6 L OF OXYGEN VIA NC; TOLERATING WELL. NOTED IV SITE ON THE FOLLOWING: R AND L UPPER CHEST # 20 AND PICC LINE ON R UA; ALL PATENT IN INTACT,NO S/S OF INFECTION OR INFILTRATION. PENA CATH IN PLACE, LARGE AMOUNT URINE OUTPUT NOTED DURING RECEIPT. PATIENT ON PUREED DIET. SAFETY MEASURES HAVE BEEN PROVIDED AND IMPLEMENTED. PATIENT BED ALARM IS ON. HEAD OF BED ELEVATED. BED IS LOCKED, IN LOWEST POSITION AND SIDE RAILS UP. CALL LIGHT WITHIN REACH OF THE PATIENT. ISOLATION PRECAUTIONS IN PLACE. WILL CONTINUE TO MONITOR AND REASSESS FOR ANY CHANGES.
[2019-12-11] MEDS: VANCOMYCIN 1 GM in IV D5W 250 ML IV SCH (23:29)
[2019-12-12] VITALS (7 sets, daily range): BP systolic 135–188; BP diastolic 78–86
[2019-12-12] MEDS: MEROPENEM 1 G in IV NS 0.9% 100 ML IV SCH ×2 (05:06→17:33)
[2019-12-12 06:19] LABS: HEMATOCRIT 24 % (39-51); HEMOGLOBIN 7.4 g/dL (13.5-17.5); LYMPHOCYTES # (AUTO) 0.6 /CMM (0.8-4.8); LYMPHOCYTES % (AUTO) 3.2 % (20.0-44.0); MEAN CORPUSCULAR HGB CONC 31 g/dl (31.0-36.0); MEAN CORPUSCULAR VOLUME 89 fL (80-96); MONOCYTES # (AUTO) 0.6 /CMM (0.1-1.30); MONOCYTES % (AUTO) 3.2 % (2.0-12.0); NEUTROPHILS # (AUTO) 16.9 /CMM (1.8-8.9); NEUTROPHILS % (AUTO) 93.6 % (43.0-81.0); PLATELET COUNT (AUTO) 252 /CMM (150-450); RED BLOOD CELL COUNT(AUTO) 2.73 MIL/uL (4.5-6.0); WHITE BLOOD COUNT (AUTO) 18.1 K/uL (4.3-11.0)
--- NOTE | 2019-12-12 06:26 | NUR ---
RN CLOSING NOTE: PATIENT REMAINS IN ROOM. NO SIGNS OF RESPIRATORY DISTRESS. SAFETY MEASURES IMPLEMENTED, BED IN LOWEST POSITION, LOCKED, SIDE RAILS UP, CALL LIGHT WITHIN REACH. ALL NEEDS AND ORDERS ADDRESSED DURING THE SHIFT. ALL DUE MEDS GIVEN ORDERED & SCHEDULED ; PATIENT TOLERATED WELL.PATIENT KEPT CLEAN AND COMFORTABLE WITHIN THE SHIFT. APPROPRIATE ISOLATION PRECAUTION EXECUTED. ENDORSED TO INCOMING SHIFT RN FOR CONTINUITY OF CARE.
[2019-12-12] MEDS: PANTOPRAZOLE 40 MG VIAL IV SCH (08:13)
[2019-12-12] MEDS: HYDROCORTISONE SOD SUCCINATE 100 MG/2 ML VIAL IV SCH ×3 (08:13→17:33)
[2019-12-12] MEDS: BLOOD SUGAR DIAGNOSTIC 1 EACH STRIP IN SCH ×4 (08:22→22:33)
[2019-12-12] MEDS: ENOXAPARIN SODIUM 40 MG/0.4 ML DISP.SYRIN SQ SCH (08:24)
[2019-12-12] MEDS: INSULIN REGULAR, HUMAN 100 UNIT/ML 3 ML VIAL SQ PRN ×4 (08:24→22:35)
[2019-12-12 09:00] LABS: CALCIUM, SERUM 7.7 mg/dL (8.5-10.1); CREATININE 1.3 mg/dL (0.6-1.3); MAGNESIUM 1.9 mg/dL (1.8-2.4); PHOSPHORUS 3.9 mg/dL (2.5-4.9)
[2019-12-12 09:20] LABS: POTASSIUM 2.8 mmol/L (3.5-5.1)
[2019-12-12] MEDS: POTASSIUM CL. PREMIX PERIPHER. 50 ML IV SCH ×4 (10:36→16:13)
--- NOTE | 2019-12-12 11:20 | NUR ---
MS/RN NOTE DIFLUCAN DUE AT 1000 IS NOT ADMINISTERED YET BECAUSE THE PHARMACY HAS NOT DELIVERED THE MEDICATION YET DESPITE FOLLOW UP CALLS. WILL CONTINUE TO FOLLOW UP.
[2019-12-12] MEDS: FLUCONAZOLE IN NS 100 MG in PREMIX 1 EA IV SCH ×2 (11:43)
[2019-12-12] MEDS: CLOTRIMAZOLE 1% 15 GM TUBE TP SCH ×2 (12:38→17:00)
[2019-12-12] MEDS: Z GUARD REMEDY 2 OZ OINT TP SCH (12:39)
--- NOTE | 2019-12-12 16:54 | NUR ---
TELE/RN NOTE OXYGEN SATURATION IN ROOM AIR IS AT 95%.
--- NOTE | 2019-12-12 18:29 | NUR ---
MS/RN NOTE THE PATIENT HAD EPISODES OF REFUSING TURNING AND REPOSITIONING DESPITE EXPLAINING RISKS AND BENEFITS MULTIPLE TIMES. THE PATIENT`S PREFERS TO REMAIN SUPINE IN MOST OF THE TIME AND OFTEN WHEN HE IS TURNED, THE PATIENT REPOSITIONS SELF TO SUPINE AGAIN.
--- NOTE | 2019-12-12 18:30 | NUR ---
MS/RN NOTE THE PATIENT IS ALERT AND ORIENTED X2-3 WITH EPISODES OF FORGETFULNESS. ABLE TO MAKE NEEDS KNOWN VERBALLY. DENIES PAIN. RECEIVING OXYGEN AT 3L/MIN VIA NASAL CANNULA AND SATURATION IS AT 94%. DENIES SOB. RESPIRATION REGULAR AND UNLABORED. THE PATIENT IN NO APPARENT DISTRESS. VELVET PICC LINE PATENT AND IV ANTIBIOTIC INFUSING PER ORDER. NO S/S INFILTRATION NOTED. PICC LINE DRESSING CHANGE DONE TODAY BY PICC LINE NURSE ROBERT. BED LOW AND LOCKED. SIDE RAILS UP X3. CALL LIGHT WITHIN REACH. WILL ENDORSE TO MENAGERIE SUPERINTENDENT.
--- NOTE | 2019-12-12 19:30 | NUR ---
RN OPENING NOTE RECEIVED PATIENT IN BED RESTING ALERT ORIENTED X2 VERBALLY RESPONSIVE NEPALI SPEAKER ABLE TO MAKE NEEDS KNOWN,NO SOB NOT ACUTE DISTRESS NOTED DENIES ANY PAIN,ON PENA CATHETER URINE DRAINS WELL YELLOW AND CLEAR ,PICC LINE ON RIGHT UPPER ARM TKO RUNNING,CALL LIGHT WITHIN REACH,CONTINUE TO MONITOR
[2019-12-12] MEDS: VANCOMYCIN 1 GM in IV D5W 250 ML IV SCH (23:18)
[2019-12-13] VITALS: BP 144/82
--- NOTE | 2019-12-13 01:00 | NUR ---
MS RN NOTES RECEIVED A CALL FROM LAB , COVID 19 RESULT NEGATIVE , TONYA LEATHER FINISHER CREDIT REPORTER AND TRISHA RAILROAD HAND MADE AWARE COV RESULT NEGATIVE .
[2019-12-13 04:00] VITALS: BP_SYST 136; BP_DIAS 92; BP_DIAS 97
[2019-12-13] MEDS: MEROPENEM 1 G in IV NS 0.9% 100 ML IV SCH (04:16)
--- NOTE | 2019-12-13 06:40 | NUR ---
RN CLOSING NOTE RECEIVED LAB RESULT COVID 19 NEGATIVE,CHANGED PATIENT ROOM FROM 109 TO 112,PATIENT REMAINS IN STABLE CONDITION ALERT ORIENTED X2 VERBALLY RESPONSIVE CENTRAL AFRICAN SPEAKER,ON 3L OXYGEN VIA NASAL CANUULA, O2 SAT 96% BREATHING IS EVEN AND UNLABORED,NO SOB NOT ACUTE DISTRESS NOTED,ALL DUE MEDS GIVEN MD ORDERED,VANCO TROUGH DONE ABOUT 18 AT 22:00,CONTINUE THE SAME VANCO DOSE, HE TOLERATED WELL KEPT CLEAN AND DRY ALL THE TIME,ALL NEEDS MET,WILL ENDORSE NEXT COMING SHIFT FOR CONTINUATION OF CARE.
[2019-12-13 06:45] LABS: BASOPHILS % (AUTO) 0.1 % (0.0-2.0); HEMATOCRIT 25 % (39-51); HEMOGLOBIN 7.7 g/dL (13.5-17.5); MEAN CORPUSCULAR HGB CONC 31 g/dl (31.0-36.0); MEAN CORPUSCULAR VOLUME 89 fL (80-96); MONOCYTES # (AUTO) 0.5 /CMM (0.1-1.30); MONOCYTES % (AUTO) 3.1 % (2.0-12.0); NEUTROPHILS # (AUTO) 14.6 /CMM (1.8-8.9); NEUTROPHILS % (AUTO) 90.8 % (43.0-81.0); PLATELET COUNT (AUTO) 256 /CMM (150-450); RED BLOOD CELL COUNT(AUTO) 2.82 MIL/uL (4.5-6.0); WHITE BLOOD COUNT (AUTO) 16.1 K/uL (4.3-11.0)
[2019-12-13 06:57] LABS: CALCIUM, SERUM 7.5 mg/dL (8.5-10.1); CARBON DIOXIDE 32 mmol/L (21-32); CHLORIDE 104 mmol/L (98-107); CREATININE 1.2 mg/dL (0.6-1.3); GLUCOSE 164 mg/dL (74-106); MAGNESIUM 1.8 mg/dL (1.8-2.4); PHOSPHORUS 2.5 mg/dL (2.5-4.9); POTASSIUM 3.4 mmol/L (3.5-5.1); SODIUM SERUM 141 mmol/L (136-145); UREA NITROGEN, BLOOD 26 mg/dL (7-18)
[2019-12-13 08:00] VITALS: BP 162/96
--- NOTE | 2019-12-13 08:00 | NUR ---
RN OPENING NOTE RECEIVED PATIENT IN BED RESTING ALERT ORIENTED X2 VERBALLY RESPONSIVE CROATIAN SPEAKER ABLE TO MAKE NEEDS KNOWN,NO SOB NOT ACUTE DISTRESS NOTED DENIES ANY PAIN,ON PENA CATHETER URINE DRAINS WELL YELLOW AND CLEAR ,PICC LINE ON RIGHT UPPER ARM TKO RUNNING,HEPLOCKS TO RT UPPER AND LT UPPER CHEST WALL.CALL LIGHT WITHIN REACH,CONTINUE TO MONITOR
[2019-12-13] MEDS: INSULIN REGULAR, HUMAN 100 UNIT/ML 3 ML VIAL SQ PRN ×2 (09:21→12:33)
[2019-12-13] MEDS: ENOXAPARIN SODIUM 40 MG/0.4 ML DISP.SYRIN SQ SCH (09:22)
[2019-12-13] MEDS: BLOOD SUGAR DIAGNOSTIC 1 EACH STRIP IN SCH ×2 (09:24→11:54)
[2019-12-13] MEDS: Z GUARD REMEDY 2 OZ OINT TP SCH (09:25)
[2019-12-13] MEDS: HYDROCORTISONE SOD SUCCINATE 100 MG/2 ML VIAL IV SCH ×2 (09:25→12:10)
[2019-12-13] MEDS: PANTOPRAZOLE 40 MG VIAL IV SCH (09:25)
[2019-12-13] MEDS: CLOTRIMAZOLE 1% 15 GM TUBE TP SCH (09:54)
[2019-12-13] MEDS: FLUCONAZOLE IN NS 100 MG in PREMIX 1 EA IV SCH ×2 (10:12)
[2019-12-13] MEDS: POTASSIUM CHLORIDE 20 MEQ TAB.PRT.SR PO SCH ×3 (10:15→13:07)
[2019-12-13 12:00] VITALS: BP 147/86
[2019-12-13] MEDS ORDERED: FLUC100P4 IV (14:46)
[2019-12-13] MEDS ORDERED: RXVAN XX (14:46)
[2019-12-13] MEDS ORDERED: ENOX40DI SQ (14:46)
[2019-12-13] MEDS ORDERED: MERO500V21 IV (14:46)
[2019-12-13 16:00] VITALS: BP 153/106
--- NOTE | 2019-12-13 17:00 | NUR ---
DISCHARGED PT TO [facility] WITH STABLE V/S.DISCHARGE INSTRUCTIONS GIVEN TO THE TRAFFIC LAW ATTORNEY.REPORT CALLED IN TO CASIE OLIVIER RN . PT WILL GO TO [facility] BED [id number]. SPOKE TO [facility],BRYN [phone]. CALLED PT'S DAUGHTER, JOE AND MADE AWARE OF THE TRANSFER TO [facility].PT'S VELVET PICC LINE, BILATERAL CHEST WALL HEPLOCKS REMAIN CLEAN,INTACT AND DRY.
== END 2019-12-13 16:49 | disposition short-term general hospital (02) | DRG 871 ==
LOC: ER 23:58 → ICU 12-10 03:12 → MEDSG1 12-11 16:08
PROVIDERS: ATTEND Nurse Practitioner Acute Care
PROC: 0BH17EZ Insertion of Endotracheal Airway into Trachea, Via Natural or Artificial Opening (ICD-10-PCS; principal; 2019-12-10)
PROC: 5A1935Z Respiratory Ventilation, Less than 24 Consecutive Hours (ICD-10-PCS; principal; 2019-12-10)
DX: A41.9 Sepsis, unspecified organism (principal); R65.21 Severe sepsis with septic shock; J18.9 Pneumonia, unspecified organism; J96.01 Acute respiratory failure with hypoxia; E43 Unspecified severe protein-calorie malnutrition; N17.0 Acute kidney failure with tubular necrosis; I13.0 Hypertensive heart and chronic kidney disease with heart failure and stage 1 through stage 4 chronic kidney disease, or unspecified chronic kidney disease; N41.2 Abscess of prostate; E87.1 Hypo-osmolality and hyponatremia; I48.20 Chronic atrial fibrillation, unspecified; B37.49 Other urogenital candidiasis; E78.5 Hyperlipidemia, unspecified; D64.9 Anemia, unspecified; Z95.0 Presence of cardiac pacemaker; E11.22 Type 2 diabetes mellitus with diabetic chronic kidney disease; I50.9 Heart failure, unspecified; M19.90 Unspecified osteoarthritis, unspecified site; K21.9 Gastro-esophageal reflux disease without esophagitis; E88.09 Other disorders of plasma-protein metabolism, not elsewhere classified; Z68.25 Body mass index [BMI] 25.0-25.9, adult; Z66 Do not resuscitate; M81.0 Age-related osteoporosis without current pathological fracture; E61.1 Iron deficiency; N18.9 Chronic kidney disease, unspecified
CPT/HCPCS: 31720; 36415; 36600; 71045-TC; 80048-TC; 80053-TC; 80076-TC; 80202-TC; 81000-TC; 82533; 82550-TC; 82728-TC; 82803-TC; 82962-TC; 83540-TC; 83605-TC; 83615-TC; 83735-TC; 83880; 84100-TC; 84443-TC; 84484-TC; 85025-TC; 85378-TC; 85385-TC; 86140-TC; 87040-TC; 87070-TC; 87081-TC; 87086-TC; 87186-TC; 92521; 94002-TC; 94799-TC; 99082-TC; A4216; A4349; C9113; G0378; G0500; J0282; J0330; J0696; J1200; J1450; J1650; J1720; J1815; J1940; J1956; J2060; J2185; J2543; J3370; J3475; J3480; J3490; J7030; J7040; J7050; J7060; U0003-CS